=== PATIENT | male | born 1940 | race Caucasian/White ===

== ENCOUNTER 2017-11-27 12:14 | Observation (INO) | payer OTHER ==
--- NOTE | 2017-11-27 12:51 | RAD REPORT ---
EXAM DESCRIPTION: CT - Head Brain Wo Cont - 11/27/2017 12:44 pm CLINICAL HISTORY: Dizziness, lightheaded, altered mental status, possible head trauma COMPARISON: October 20 TECHNIQUE: Axial 5 mm thick images of the head were obtained without IV contrast. All CT scans are performed using dose optimization technique as appropriate and may include automated exposure control or mA/KV adjustment according to patient size. FINDINGS: No intracranial hemorrhage, mass, edema or shift of mid-line structures. No acute cortical based infarction. No cortical edema or sulcal effacement. The patient has moderate atrophy and chron ic ischemic change are noted similar to comparison. No abnormal extra-axial fluid collections. Ventri cular size remains in proportion to the amount of volume loss. Arterial and physiologic calcification s are present. Mastoid air cells and visualized portions of the paranasal sinuses are clear. No acute bony findings. IMPRESSION: Moderate atrophy and chronic ischemic change similar to comparison. No acute intracrania l finding.
[2017-11-27 13:16] LABS: Absolute Lymphocytes (CBC) 1.3 K/uL (0.7-4.9); Absolute Monocytes 0.6 K/uL (0.1-1.3); Absolute Neutrophil 6.7 K/uL (1.8-8.0); Hematocrit 41.7 % (39.6-49.0); Lymphocytes % 14.8 % (15.3-44.8); MCH 28.2 pg (27.0-35.0); MCV 84.3 fL (80-100); MPV 10.3 fL (7.6-11.3); Monocytes % 6.6 % (3.3-12.3); RBC Red Blood Cell Count 4.94 M/uL (4.33-5.43)
[2017-11-27 13:25] LABS: Bicarbonate 23 mEq/L (21-31); Glucose Level 392 mg/dL (65-120); Lipase 21 U/L (22-51); Potassium 3.5 mEq/L (3.6-5.0); Sodium Level 135 mEq/L (135-145)
[2017-11-27] MEDS ORDERED: NA CHLORIDE 0.9% 1,000 ML ONE (13:28)
[2017-11-27] MEDS ORDERED: TETANUS & DIPHTHERIA TOX,ADULT 0.5 ML VIAL ONE (13:29)
[2017-11-27 13:32] LABS: ALT/SGPT 13 IU/L (10-60); AST/SGOT 16 IU/L (10-42); Albumin 3.3 g/dL (3.2-5.5); Alkaline Phosphatase 63 IU/L (42-121); BUN Blood Urea Nitrogen 14 mg/dL (6-20); Bilirubin Direct 0.1 mg/dL (0-0.2); Bilirubin Total 0.7 mg/dL (0.3-1.2); Glomerular Filtration Rate > 90 mL/min (=/>90); Protein, Total 6.7 g/dL (6.0-8.3)
--- NOTE | 2017-11-27 15:35 | EDPHYS ---
Physician Documentation [facility] Name: Wolf Roberto Age: 77 yrs Sex: Male : 1940 Arrival Date: 11/27/2017 Time: 12:19 Bed 7 Private MD: ED Physician Griffin Mckeon HPI: 11/27 15:23 This 77 yrs old Male presents to ER via EMS with complaints of Diarrhea. gs 15:24 The patient has experienced syncope, became unresponsive. Onset: The symptoms/episode gs began/occurred acutely, just prior to arrival. Duration: This was a single episode. Context: occurred [facility]. Associated injury: Head/face: abrasion. Associated signs and symptoms: Pertinent positives: diarrhea for several days seen in ed worked up still feels weak today. Current symptoms: Currently, the patient is not experiencing any symptoms, the patient feels back to baseline. Historical: - Allergies: 12:28 PENICILLINS; iw - Home Meds: 12:29 aspirin 325 mg Oral tab 1 tab once daily [Active]; enalapril maleate 10 mg Oral tab 1 iw tab once daily [Active]; Fish Oil 1,000 mg Oral cap twice a day [Active]; gemfibrozil 600 mg Oral tab 1 tab 2 times per day [Active]; glyburide-metformin 5-500 mg Oral tab 2 tabs 2 times per day [Active]; imdur ER 60 mg daily [Active]; meclizine 25 mg Oral tab 1 tab TID prn [Active]; metoprolol tartrate 50 mg Oral tab once daily [Active]; multivitamin Oral cap 1 tab daily [Active]; Novolin 70/30 Innolet Sub-Q [Active]; pentoxifylline 400 mg Oral TbER 1 tab daily [Active]; Plavix 75 mg Oral tab 1 tab once daily [Active]; Vitamin C 500 mg Oral cpER daily [Active]; vitamin E 400 unit Oral cap daily [Active]; - PMHx: 12:28 Diabetes - NIDDM; PVD; TIA; iw - PSHx: 12:28 quadruple bypass; iw - Immunization history:: Adult Immunizations unknown. - Social history:: The patient lives at home, Smoking status: Patient/guardian denies using tobacco. ROS: 15:24 All other systems are negative. gs Exam: 15:24 Constitutional: This is a well developed, well nourished patient who is awake, alert, gs and in no acute distress. 15:24 Eyes: Pupils equal round and reactive to light, extra-ocular motions intact. Lids and lashes normal. Conjunctiva and sclera are non-icteric and not injected. Cornea within normal limits. Periorbital areas with no swelling, redness, or edema. ENT: Nares patent. No nasal discharge, no septal abnormalities noted. Tympanic membranes are normal and external auditory canals are clear. Oropharynx with no redness, swelling, or masses, exudates, or evidence of obstruction, uvula midline. Mucous membranes moist. Neck: Trachea midline, no thyromegaly or masses palpated, and no cervical lymphadenopathy. Supple, full range of motion without nuchal rigidity, or vertebral point tenderness. No Meningismus. Chest/axilla: Normal chest wall appearance and motion. Nontender with no deformity. No lesions are appreciated. Cardiovascular: Regular rate and rhythm with a normal S1 and S2. No gallops, murmurs, or rubs. Normal PMI, no JVD. No pulse deficits. Respiratory: Lungs have equal breath sounds bilaterally, clear to auscultation and percussion. No rales, rhonchi or wheezes noted. No increased work of breathing, no retractions or nasal flaring. Abdomen/GI: Soft, non-tender, with normal bowel sounds. No distension or tympany. No guarding or rebound. No evidence of tenderness throughout. Back: No spinal tenderness. No costovertebral tenderness. Full range of motion. Skin: Warm, dry with normal turgor. Normal color with no rashes, no lesions, and no evidence of cellulitis. 15:24 Head/face: Noted is abrasion(s), that are mild, of the top of head. 15:24 ECG was reviewed by the Attending Physician. 15:24 Musculoskeletal/extremity: Pulses: are normal with no appreciated deficits, Edema, 1+ to the left midcalf and right midcalf is noted, Sensation intact. decrease dorsiflex ankle and ehl says started over weekend. 15:24 Neuro: Orientation: is normal, Mentation: is normal, Cranial nerves: CN II- XII are normal as tested, Cerebellar function: normal finger to nose testing, Motor: moves all fours, Sensation: no obvious gross deficits. Vital Signs: 12:27 BP 139 / 80; Pulse 83; Resp 18; Pulse Ox 96% ; ae1 12:28 BP 139 / 80; Pulse 86; Resp 16 S; Temp 97.2; Pulse Ox 97% on R/A; Weight 107.5 kg; iw Height 6 ft. 1 in. (185.42 cm); Pain 4/10; 13:30 BP 152 / 77; Pulse 85; Resp 16; Pulse Ox 98% on R/A; jl7 14:13 BP 152 / 77; Pulse 85; Resp 16 S; Pulse Ox 96% on R/A; jl7 14:45 BP 150 / 92; Pulse 79; Resp 18 S; Pulse Ox 100% on R/A; jl7 15:30 BP 157 / 83; Pulse 79; Resp 18 S; Pulse Ox 100% on R/A; jl7 16:15 BP 142 / 76; Pulse 80; Resp 18 S; Pulse Ox 99% on R/A; jl7 12:28 Body Mass Index 31.27 (107.50 kg, 185.42 cm) iw MDM: 12:27 Patient medically screened. 15:24 Differential Diagnosis: cardiac arrhythmia, cerebrovascular accident, seizure, gs vasovagal episode. Data reviewed: vital signs, nurses notes. Response to treatment: the patient's symptoms have markedly improved after treatment, and as a result, I will admit patient. 11/27 12:29 Order name: Basic Metabolic Panel; Complete Time: 14:24 11/27 12:29 Order name: CBC with Diff; Complete Time: 13:17 11/27 12:29 Order name: Hepatic Function; Complete Time: 14:24 11/27 12:29 Order name: Lipase; Complete Time: 14:24 11/27 12:29 Order name: Urine Microscopic Only 11/27 12:29 Order name: CDIFF 11/27 12:29 Order name: EKG; Complete Time: 12:30 11/27 12:29 Order name: CT Head Brain wo Cont; Complete Time: 13:17 11/27 15:37 Order name: Urine Dipstick--Ancillary (enter results) 11/27 17:22 Order name: Glucose, Ancillary Testing [facility] 11/27 17:22 Order name: Glucose, Ancillary Testing [facility] 11/27 12:29 Order name: IV Saline Lock; Complete Time: 13:11 11/27 12:29 Order name: Labs collected and sent; Complete Time: 13:11 11/27 12:29 Order name: Urine Dipstick-Ancillary (obtain specimen); Complete Time: 15:48 11/27 16:16 Order name: CONS Physician Consult [facility] 11/27 16:16 Order name: Regular [facility] EC:24 Rate is 83 beats/min. Rhythm is regular. GA interval is normal. QRS interval is gs prolonged. QT interval is prolonged. Clinical impression: NSR w/ Non-specific ST/T Changes. Interpreted by me. Administered Medications: 13:14 Drug: NS 0.9% 1000 ml Route: IV; Rate: 1 bolus; Site: right forearm; jl7 14:15 Follow up: Response: No adverse reaction; IV Status: Completed infusion jl7 17:45 Follow up: IV Status: Completed infusion iw 14:00 Drug: Tetanus-Diphtheria Toxoid Adult 0.5 ml {Standards Engineer: [employer]. Exp: jl7 04/05/2020. Lot #: [id number]. } Route: IM; Site: left deltoid; 14:46 Follow up: Response: No adverse reaction jl7 17:28 Drug: HumuLIN R 2 units {Co-Signature: joana (Sherri Phillips RN).} Route: IVP; Site: right forearm; 17:45 Follow up: Response: No adverse reaction Point of Care Testing: Blood Glucose: 12:27 Blood Glucose: 336 mg/dL; ae1 17:27 Blood Glucose: 223 mg/dL; jl7 Ranges: Critical Glucose Levels:Adult <50 mg/dl or >400 mg/dl <40 mg/dl or >180 mg/dl Disposition: 11/27/17 15:35 Hospitalization ordered by Boris Alvarez for Observation. Preliminary diagnosis are Weakness, Syncope and collapse, Foot drop, right foot, Diarrhea, unspecified. - Bed requested for Telemetry/MedSurg (observation). - Status is Observation. iw - Condition is Stable. - Problem is new. - Symptoms have improved. UTI on Admission? No Signatures: Dispatcher [employer] [facility] Brigid Simpson RN RN iw Vandana Garcia RN RN jl7 Roseanna Hart RN RN df Starr, Gregory, MD MD gs Sherrihoang Phillips RN dm5
--- NOTE | 2017-11-27 15:35 | ER ---
Nurse's Notes [facility] Name: Wolf Roberto Age: 77 yrs Sex: Male : 1940 Arrival Date: 11/27/2017 Time: 12:19 Bed 7 Private MD: Diagnosis: Weakness;Syncope and collapse;Foot drop, right foot;Diarrhea, unspecified Presentation: 11/27 12:24 Presenting complaint: EMS states: has had diarrhea X 6 days, was seen in Er on Monday iw for same symptoms, yesterday was feeling better but today felt light headed, dizzy, fell from standing, has abrasion to top of head, also c/o mild abd discomfort 12/12, denies vomiting. Transition of care: patient was not received from another setting of care. Onset of symptoms was November 22, 2017. Care prior to arrival: Glucose check: 421. 12:24 Method Of Arrival: EMS: [facility] iw 12:24 Acuity: TIM 3 iw Historical: - Allergies: 12:28 PENICILLINS; iw - Home Meds: 12:29 aspirin 325 mg Oral tab 1 tab once daily [Active]; enalapril maleate 10 mg Oral tab 1 iw tab once daily [Active]; Fish Oil 1,000 mg Oral cap twice a day [Active]; gemfibrozil 600 mg Oral tab 1 tab 2 times per day [Active]; glyburide-metformin 5-500 mg Oral tab 2 tabs 2 times per day [Active]; imdur ER 60 mg daily [Active]; meclizine 25 mg Oral tab 1 tab TID prn [Active]; metoprolol tartrate 50 mg Oral tab once daily [Active]; multivitamin Oral cap 1 tab daily [Active]; Novolin 70/30 Innolet Sub-Q [Active]; pentoxifylline 400 mg Oral TbER 1 tab daily [Active]; Plavix 75 mg Oral tab 1 tab once daily [Active]; Vitamin C 500 mg Oral cpER daily [Active]; vitamin E 400 unit Oral cap daily [Active]; - PMHx: 12:28 Diabetes - NIDDM; PVD; TIA; iw - PSHx: 12:28 quadruple bypass; iw - Immunization history:: Adult Immunizations unknown. - Social history:: The patient lives at home, Smoking status: Patient/guardian denies using tobacco. Screenin:30 Abuse screen: Denies threats or abuse. Denies injuries from another. Nutritional jl7 screening: No deficits noted. Tuberculosis screening: No symptoms or risk factors identified. Fall Risk IV access (20 points). Total Ventura Fall Scale indicates No Risk (0-24 pts). Assessment: 12:30 General: Appears in no apparent distress. uncomfortable, Behavior is calm, cooperative, jl7 appropriate for age. Pain: Complains of pain in right lower quadrant and left lower quadrant Pain does not radiate. Pain currently is 4 out of 10 on a pain scale. Quality of pain is described as aching. Neuro: Level of Consciousness is awake, alert, obeys commands, Oriented to person, place, time, situation. Cardiovascular: Patient's skin is warm and dry. Respiratory: Airway is patent Respiratory effort is even, unlabored, Respiratory pattern is regular, symmetrical. GI: Abdomen is round non-distended, Bowel sounds present X 4 quads. Abd is soft Abdomen is tender to palpation in right lower quadrant and left lower quadrant. : No signs and/or symptoms were reported regarding the genitourinary system. EENT: No signs and/or symptoms were reported regarding the EENT system. Derm: Skin is pink, warm \T\ dry. Musculoskeletal: No signs and/or symptoms reported regarding the musculoskeletal system. 13:30 Reassessment: No changes from previously documented assessment. Patient and/or family jl7 updated on plan of care and expected duration. Pain level reassessed. Patient is alert, oriented x 3, equal unlabored respirations, skin warm/dry/pink. 14:30 Reassessment: Patient and/or family updated on plan of care and expected duration. Pain jl7 level reassessed. Patient is alert, oriented x 3, equal unlabored respirations, skin warm/dry/pink. 15:30 Reassessment: Patient and/or family updated on plan of care and expected duration. Pain jl7 level reassessed. Patient is alert, oriented x 3, equal unlabored respirations, skin warm/dry/pink. 16:16 Reassessment: Patient and/or family updated on plan of care and expected duration. Pain jl7 level reassessed. Patient is alert, oriented x 3, equal unlabored respirations, skin warm/dry/pink. Vital Signs: 12:27 BP 139 / 80; Pulse 83; Resp 18; Pulse Ox 96% ; ae1 12:28 BP 139 / 80; Pulse 86; Resp 16 S; Temp 97.2; Pulse Ox 97% on R/A; Weight 107.5 kg; iw Height 6 ft. 1 in. (185.42 cm); Pain 4/10; 13:30 BP 152 / 77; Pulse 85; Resp 16; Pulse Ox 98% on R/A; jl7 14:13 BP 152 / 77; Pulse 85; Resp 16 S; Pulse Ox 96% on R/A; jl7 14:45 BP 150 / 92; Pulse 79; Resp 18 S; Pulse Ox 100% on R/A; jl7 15:30 BP 157 / 83; Pulse 79; Resp 18 S; Pulse Ox 100% on R/A; jl7 16:15 BP 142 / 76; Pulse 80; Resp 18 S; Pulse Ox 99% on R/A; jl7 12:28 Body Mass Index 31.27 (107.50 kg, 185.42 cm) iw ED Course: 12:19 Patient arrived in ED. iw 12:20 Griffin Mckeon MD is Attending Physician. gs 12:27 Parviz Walsh, RN is Primary Nurse. ae1 12:27 Triage completed. iw 12:28 Arm band placed on. iw 12:30 Patient has correct armband on for positive identification. Placed in gown. Bed in low jl7 position. Call light in reach. Side rails up X2. front desk monitor on. Pulse ox on. NIBP on. Warm blanket given. 12:44 CT Head Brain wo Cont In Process Unspecified. EDMS 13:11 EKG done, by vehicle operator technician. reviewed by Griffin Mckeon MD. Initial lab(s) drawn, by ne, sent jb1 to lab. Inserted saline lock: 22 gauge in right forearm, using aseptic technique. Blood collected. 13:13 Primary Nurse role handed off by Parviz Walsh RN jl7 13:13 Vandana Garcia RN is Primary Nurse. jl7 15:34 Boris Alvarez MD is Hospitalizing Provider. gs 17:44 No provider procedures requiring assistance completed. Patient admitted, IV remains in iw place. Administered Medications: 13:14 Drug: NS 0.9% 1000 ml Route: IV; Rate: 1 bolus; Site: right forearm; jl7 14:15 Follow up: Response: No adverse reaction; IV Status: Completed infusion jl7 17:45 Follow up: IV Status: Completed infusion iw 14:00 Drug: Tetanus-Diphtheria Toxoid Adult 0.5 ml {Anthropological Linguist: [employer]. Exp: jl7 04/05/2020. Lot #: [id number]. } Route: IM; Site: left deltoid; 14:46 Follow up: Response: No adverse reaction jl7 17:28 Drug: HumuLIN R 2 units {Co-Signature: [email or web address] (Sherri Phillips RN).} Route: IVP; Site: iw right forearm; 17:45 Follow up: Response: No adverse reaction iw Point of Care Testing: Blood Glucose: 12:27 Blood Glucose: 336 mg/dL; ae1 17:27 Blood Glucose: 223 mg/dL; jl7 Ranges: Outcome: 15:35 Decision to Hospitalize by Provider. 17:44 Admitted to Med/surg accompanied by tech, via wheelchair, room 214, Report called to ronak Vargas 17:44 Condition: good 17:44 Instructed on the need for admit, Demonstrated understanding of instructions. 17:46 Patient left the ED. iw Signatures: Dispatcher [employer] Naeem Clinton jbBrigid Barba RN RN iw Parviz Walsh RN RN fred1 Vandaan Garcia RN RN jl7 Griffin Mckeon MD MD Sherri Phillips RN dm5
[2017-11-27 15:48] LABS: Urine Blood NEGATIVE (NEG); Urine Glucose 2+ (NEG); Urine Protein NEGATIVE (NEG)
[2017-11-27 16:08] LABS: Urine Bacteria NONE SEEN /HPF (NONE SEEN); Urine Culture Reflex Order NOT NEEDED; Urine RBC <5 /HPF (NONE SEEN)
[2017-11-27] MEDS ORDERED: ACETAMINOPHEN 500 MG TAB PO PRN (16:15)
--- NOTE | 2017-11-27 16:20 | EKG ---
Test Date: 2017-11-27 Test Time: 12:53:38 Store Lead: CATH MEASUREMENT RESULTS: Intervals: Rate: 83 WV: 186 QRSD: 144 QT: 446 QTc: 524 [place]: P: 66 WV: 186 QRS: 60 T: 52 INTERPRETIVE STATEMENTS: Normal sinus rhythm Right bundle branch block Anteroseptal infarct, age undetermined Abnormal ECG Compared to ECG 11/25/2017 13:09:50 No significant changes Electronically Signed On 11-27-17 16:19:34 CDT by Curtis Franz
[2017-11-27] MEDS ORDERED: INSULIN -REGULAR HUMAN 50 UNIT/0.5 ML ML ONE (17:37)
[2017-11-27 18:45] VITALS: BMI 29.5
[2017-11-27] MEDS: NA CHLORIDE 0.9% 1,000 ML IV SCH (20:09)
--- NOTE | 2017-11-27 20:19 | RAD REPORT ---
EXAM DESCRIPTION: MRI - Stroke Protocol - 11/27/2017 8:02 pm COMPARISON: None. TECHNIQUE: Axial, sagittal and coronal magnetic resonance images of the brain were obtained. Twenty cc MultiHance was administered. Magnetic resonance angiography of the head and neck was performed. So urce images were reviewed and reconstructed at 360 degrees rotation. FINDINGS: No abnormal enhancement within the brain is seen. No significant abnormal signal within t he brain is noted. The ventricles are normal caliber. An extra-axial fluid collection is not seen. Diffusion-weighted/ADC mapping does not reveal evidence of an acute infarction. A mucus retention cyst is present in the right maxillary sinus. Fluid within the sinuses/mastoids is not seen. An approximately 70-80 percent stenosis involves the left carotid bulb. The common, right internal an d external carotid arteries do not demonstrate a significant stenosis. The vertebral arteries are unr emarkable. The visualized right anterior cerebral, middle cerebral, posterior cerebral, basilar and distal inte rnal carotid arteries do not demonstrate a significant stenosis. An aneurysm is not seen. A 1 segment of the left anterior cerebral artery is hypoplastic IMPRESSION: Unremarkable MRI brain Approximately 70-80% stenosis left carotid bulb Unremarkable MRA brain
[2017-11-27] MEDS ORDERED: GLUCAGON 1 MG/VIAL IM PRN (21:36)
[2017-11-27] MEDS ORDERED: D50W 25 GM/50 ML SYRINGE IV PRN (21:36)
[2017-11-27] MEDS ORDERED: POTASSIUM CL SA 10 MEQ TAB PO ONE (22:00)
--- NOTE | 2017-11-27 23:02 | CON ---
Date of Consultation: 11/27/2017 Reason: Syncope. History Of Present Illness: A 77-year-old gentleman with hypertension, diabetes, hyperlipidemia. He was well until last when he started developing copious diarrhea, came to the emergency depa rtment on Monday, seen, treated, and released. CT abdomen and pelvis, low-density areas within the spleen, suspicious for splenic infarct. CBC has been normal. Glucose quite elevated and remains so today. The patient gives a history of since Monday having right foot weakness and then today nathalie g with the diarrhea several episodes of syncope, passed out, fell, hit his head, in addition an episo de last month where he became confused, drove his car around until it was empty. The patient has ess entially no recollection of that, came into the hospital then, sent to [place], that date is not avai lable, but he had a workup. He states none of his medications were changed. After the multiple epis odes of syncope today, EMS was summoned, and brought to the emergency department. Blood pressure has not been excessively low. He was admitted. Given the leg weakness and multiple episodes of syncope as well as the episode from last month, I was consulted. Past Medical History: As alluded to. Medications: Normally pentoxifylline, Zocor, Toprol, Glucophage, meclizine, isosorbide, insulin, gly buride, Lopid, Flonase, Vasotec, Plavix, and aspirin. Allergies: PENICILLIN, TETANUS. Social History: Does not smoke. Normally independent with activities of daily living. Family History: No family history of premature stroke. Review of Systems: General: Good health. Eyes: Negative. Ears, Nose, Throat: Negative. Cardiovascular: Hypertension. Pulmonary: Denies. GI: Diarrhea. : Negative. Musculoskeletal: Leg paresthesias, leg weakness. Neurologic: As noted. Psychiatric: Negative. Endocrine: Diabetes. Hematologic: Negative. Physical Examination: Vital Signs: Temperature 97.1, pulse 86, respiratory rate 16, blood pressure 177/94. General: He is a pleasant gentleman, lying in bed, in no distress. Awake, alert, oriented. HEENT: Pupils reactive. Ocular motion full. Scruggs full. Facial strength, sensation normal. Tong ue protrudes evenly. Soft palate elevates symmetrically bilaterally. Extremities: Examination of his extremities reveals right footdrop 3/5 with weakness and foot eversi on and slight weakness in inversion as well. Reflexes 1/4 symmetric. Left toe is downgoing. Right toe is silent. Cerebellar exam demonstrates no ataxia. Impression: Syncope, footdrop. Plan: Check an EEG for the syncope, although likely related to volume depletion. 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 Thank you for the consult. We will continue to follow with you. AMALIA/GINGER Voice ID: [id number] Report ID: [id number]
[2017-11-28] MEDS: ENALAPRIL 2.5 MG TAB PO SCH (05:28)
[2017-11-28] MEDS: METOPROLOL XL 50 MG TAB PO SCH (05:28)
[2017-11-28] MEDS: NA CHLORIDE 0.9% 1,000 ML IV SCH ×3 (05:30→23:43)
[2017-11-28 06:34] LABS: BUN Blood Urea Nitrogen 10 mg/dL (6-20); Bicarbonate 25 mEq/L (21-31); Glomerular Filtration Rate > 90 mL/min (=/>90); Glucose Level 242 mg/dL (65-120); HDL Cholesterol 28 mg/dL (27-67); LDL Cholesterol, Calculated 69 (<130); Potassium 3.4 mEq/L (3.6-5.0); Sodium Level 136 mEq/L (135-145); Thyroid Stimulating Hormone 3.07 uIU/mL (0.34-5.60)
[2017-11-28] MEDS: INSULIN -REGULAR HUMAN 50 UNIT/0.5 ML ML SQ SCH ×4 (07:30→21:00)
[2017-11-28] MEDS ORDERED: POTASSIUM CL SA 10 MEQ TAB PO ONE (08:00)
[2017-11-28] MEDS: glyBURIDE 2.5 MG TAB PO SCH ×2 (09:02→21:27)
[2017-11-28] MEDS: GEMFIBROZIL 600 MG TAB PO SCH ×2 (09:03→21:30)
[2017-11-28] MEDS: PENTOXIFYLLINE ER 400 MG TAB PO SCH (09:03)
[2017-11-28] MEDS: METFORMIN HCL 500 MG TAB PO SCH ×2 (09:03→17:06)
[2017-11-28] MEDS: ISOSORBIDE MONO SR 60 MG TAB PO SCH ×2 (09:03→21:27)
[2017-11-28] MEDS: ATORVASTATIN 40 MG TAB PO SCH (09:03)
[2017-11-28] MEDS: CLOPIDOGREL 75 MG TABLET PO SCH (09:03)
[2017-11-28] MEDS: MECLIZINE HCL 12.5 MG TAB PO SCH ×2 (09:03→21:28)
[2017-11-28] MEDS: ENOXAPARIN 30 MG/0.3 ML SQ SCH ×2 (09:04→21:27)
[2017-11-28] MEDS: FLUTICASONE 50MCG NASAL SPRAY NAS SCH (10:24)
[2017-11-28 12:51] LABS: A1c Component 1.37 mg/dL
[2017-11-28] MEDS: KCL 20 MEQ/100 mL IVPB 20 MEQ/100 ML BAG IV SCH ×2 (18:00→21:27)
[2017-11-28 21:55] VITALS: O2SAT 99
--- NOTE | 2017-11-28 23:30 | PN ---
Date of Progress Note: 11/28/2017 Time: 1900 hours. Reason: Footdrop and syncope. Interval History: The patient is stable. Brain MRI, no acute stroke, questionable borderline 70-80% left carotid stenosis. He is asymptomatic. I would recommend revascularization for that. EEG was normal. Footdrop slightly improved today. Laboratory Data: Sedimentation rate normal. Thyroid and B12 normal. Hemoglobin A1c 12. Physical Examination: He is awake, alert, oriented. Cranial nerves are unremarkable. 4- right foot dorsiflexion and jada ion weakness. Inversion is full strength today. Knee jerks are symmetric. Ankle jerks are absent. Fewer paresthesias over the right zavala. Impression: 1.Syncope, likely vasovagal with a component of diabetic autonomic neuropathy. 2.Footdrop, peroneal neuropathy. No evidence for new stroke. Plan: The patient is stable to be discharged home. From a nervous system standpoint, he should have an AFO. I directed the patient obtain that, given him a prescription, left in his chart. He needs to go to [facility] here in town, so he can get the AFO fitted to his size. Reviewed with the patient 's attending as well. Thank you for the consult. LAKISHA Voice ID: [id number] Report ID: [id number]
--- NOTE | 2017-11-29 05:19 | SS ---
Date of Discharge: 11/28/2017 Chief Complaint: Diarrhea and falling down. History Of Present Illness: This is a 77-year-old male patient with history of diabetes and multiple other comorbidities came into emergency room with above- mentioned problem. The patient started to have diarrhea in the last few days. Denies any travel. No recent use of any antibiotics. He had multiple episodes of diarrhea to the extent that sometime he would end up having loss of control because he could not make it to the bathroom in timely manner. 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 Again, as he was walking to go into the [facility], he fell down in the parking lot. He did not have any prior symptoms. No loss of consciousness. He did not trip over anything. He just does not know why he fell down. He was able to manage to get up by holding onto car and then as he went inside the [facility], he ran into the bathroom and he fell in the bathroom as well second time. Once again, there was no loss of consciousness. After this fall, he was sitting on the bathroom commode and someone came into the bathroom at that time and he requested to get some help. Ambulance was called and the patient was brought into the emergency room. After he arrived in the emergency room, he was evaluated and he also reported that he was not able to move his right foot as good as before and it was very obvious that the patient had a right footdrop and this is something new in last couple of days as he describes. He also feels like that he does not have any normal sensation in his right foot in last couple of days. He denies injury to right leg or right foot. After the patient was evaluated in the ER, he was admitted to the hospital. I went to check on him last night for this hospital admission, but he was in Radiology Department, getting MRI, so the patient was seen this morning. Allergies: TO PENICILLIN AND TETANUS. Medications: List reviewed. Review of Systems: DATA SCIENTIST: As mentioned above. GI: As mentioned above. All other systems reviewed and negative. Social History: Negative for smoking and alcohol use. Family History: Not pertinent. Past Surgical History: Coronary artery bypass surgery. Past Medical History: Significant for coronary artery disease, hypertension, hyperlipidemia, diabetes mellitus, peripheral vascular disease. Physical Examination: Vital Signs: When he came into emergency room, vital signs included temperature 97.2, pulse 83, respiratory rate 18, blood pressure 139/80, oxygen saturation 96%. General: Awake, alert, oriented, not in distress. HEENT: Head atraumatic, normocephalic. Conjunctivae nonerythematous. Sclerae white. Mouth, no thrush or edema noted. Ears/Nose, no mass, lesion, discharge noted. Neck: Supple. No JVD, lymph nodes, bruit, thyromegaly noted. Lungs: Bilateral good equal air entry. Clear to auscultation. No rhonchi. No rales. Heart: Normal heart sounds, no murmur or gallop. Abdomen: Soft, bowel sounds normal. No guarding, rigidity, tenderness, mass, hepatosplenomegaly, distention, or bruit noted. Extremities: No leg edema. No calf tenderness. Skin: No rash, ulcer, cellulitis. Lymphatics: No lymph node enlargement in neck, supraclavicular, infraclavicular region. Neuro: The patient has right footdrop, otherwise no other focal neurological deficit. Chest: Unremarkable. External Genitalia: Deferred. Rectal: Deferred. Imaging: The patient's CAT scan of the head done in the emergency room does not show any acute intracranial changes. 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 EKG; normal sinus rhythm, right bundle-branch block. Laboratory Data: White count 8.8, hemoglobin 13.9, platelets 196. Sedimentation rate 17. Sodium 135, potassium 3.5, chloride 104, bicarb 23, BUN 14, creatinine 0.77, glucose 392. Liver function tests unremarkable. Triglyceride 255, total cholesterol 148, LDL 69, HDL 28. Hemoglobin A1c 12. B12 315. TSH 3.07. Urinalysis negative. Stool culture and stool C. diff done through emergency room on 11/25/2017, when he came into ER with diarrhea was negative. Hospital Course: After the patient was evaluated in the ER, he was admitted to the hospital. Neurology consultation was obtained from Dr. Thompson. There was no evidence of stroke. 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 Thompson has suspected. He is going to arrange for AFO brace for the patient to use. I did talk to patient this morning, explained it to him that because he has impaired sensation in his right foot and right footdrop, I have advised him that it is not safe for him to drive and my instruction for him was not to drive any car or motor vehicle at this point. He seems to understand and accept this recommendation. His workup was done at [facility] about a month ago when he was admitted there and at that time, he did not have any evidence of any carotid artery stenosis and Dr. Thompson thinks that this MRI report probably is over estimating the problem and has not suggested any further intervention at this point. Dr. Thompson has released him to go home from his point of view and he will arrange for the patient to get this AFO brace and I will see him for followup on an outpatient basis. Discharge Medications And Instructions: 1. Continue all prior home medications. 2. Follow up at my office and with Dr. Thompson in 2 weeks. 3. Follow up with Dr. Scott in 1 to 2 weeks because diabetes is not under good control. 4. Do not drive car. 5. Use brace over leg as prescribed by Dr. Thompson. Final Diagnoses: 1. Volume depletion. 2. Diarrhea. 3. 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 4. Diabetes mellitus, type 2, uncontrolled. 5. Hypertension. 6. Mixed hyperlipidemia. 7. Coronary artery disease. ILEANA/MODL Voice ID: [id number] Report ID: [id number] ZOE
[2017-11-29] MEDS: METOPROLOL XL 50 MG TAB PO SCH (05:20)
[2017-11-29] MEDS: ENALAPRIL 2.5 MG TAB PO SCH (05:20)
[2017-11-29 07:02] LABS: BUN Blood Urea Nitrogen 7 mg/dL (6-20); Bicarbonate 26 mEq/L (21-31); Glomerular Filtration Rate > 90 mL/min (=/>90); Glucose Level 125 mg/dL (65-120); Potassium 3.8 mEq/L (3.6-5.0); Sodium Level 140 mEq/L (135-145)
[2017-11-29 07:08] LABS: Magnesium 1.4 mg/dL (1.8-2.5)
[2017-11-29] MEDS: INSULIN -REGULAR HUMAN 50 UNIT/0.5 ML ML SQ SCH (07:30)
[2017-11-29] MEDS ORDERED: Magnesium Sulfate 2gm IVPB 2 G/50 ML BAG IV ONE (07:34)
[2017-11-29] MEDS ORDERED: POTASSIUM CL SA 10 MEQ TAB PO ONE (07:36)
[2017-11-29] MEDS: FLUTICASONE 50MCG NASAL SPRAY NAS SCH (09:00)
[2017-11-29] MEDS: glyBURIDE 2.5 MG TAB PO SCH (09:52)
[2017-11-29] MEDS: ISOSORBIDE MONO SR 60 MG TAB PO SCH (09:52)
[2017-11-29] MEDS: ATORVASTATIN 40 MG TAB PO SCH (09:52)
[2017-11-29] MEDS: GEMFIBROZIL 600 MG TAB PO SCH (09:52)
[2017-11-29] MEDS: CLOPIDOGREL 75 MG TABLET PO SCH (09:52)
[2017-11-29] MEDS: PENTOXIFYLLINE ER 400 MG TAB PO SCH (09:52)
[2017-11-29] MEDS: ENOXAPARIN 30 MG/0.3 ML SQ SCH (09:52)
[2017-11-29] MEDS: MECLIZINE HCL 12.5 MG TAB PO SCH (09:52)
[2017-11-29] MEDS: METFORMIN HCL 500 MG TAB PO SCH (09:52)
[2017-11-29 09:57] VITALS: BP 136/69; TEMP 99
--- NOTE | 2017-11-29 10:14 | EEG ---
CHART: [id number] TEST ID#: [id number] DATE OF STUDY: 11/28/2017 THE EEG WAS RECORDED PORTABLE IN THE PATIENT'S ROOM ON A 17 CHANNEL MACHINE. ELECTRODES WERE APPLIED IN THE USUAL MANNER USING THE INTERNATIONAL 10-20 SYSTEM. THE WAKING BACKGROUND RHYTHM IN THIS RECORD CONSISTS OF FAIRLY WELL DEVELOPED AND FAIRLY WELL ORGANIZED WAVES OF UP TO 10 HZ., MAXIMAL IN THE POSTERIOR HEAD REGIONS WHICH ATTENUATE NORMALLY WITH EYE OPENING. IN DROWSINESS THE BACKGROUND DROPS TO 9 HZ. THERE ARE NO FOCAL OR LATERALIZING FEATURES. NO EPILEPTIFORM ACTIVITY APPEARS. SLEEP DID NOT OCCUR. HYPERVENTILATION WAS NOT PERFORMED. PHOTIC STIMULATION PRODUCED FAIR DRIVING BILATERALLY. IMPRESSION: NORMAL EEG FOR THE AGE OF THE PATIENT IN WAKE AND DROWSINESS.
--- NOTE | 2017-12-11 05:10 | DS ---
Date of Discharge: 11/29/2017 Disposition: Discharged to go home. Physical Examination: HEENT: Unremarkable. Lungs: Clear to auscultation. Heart: Sounds normal. Abdomen: Soft. Bowel sounds normal. No guarding, rigidity, tenderness, or distention. Extremities: No leg edema. Discharge Medications And Instructions: 1.Continue all prior home medications. 2.Follow up at my office in 2 weeks[address] Thompson in 2 weeks. 4.Follow up with your project controls specialist Dr. Scott in 1-2 weeks as your diabetes is not under good c ontrol. 5.Do not drive car. 6.Use brace over right leg as prescribed by Dr. Thompson. Discharge Diagnoses: 1.Volume depletion. 2.Diarrhea. 3.Right foot drop. 4.Diabetes mellitus, type 2, uncontrolled. 5.Hypomagnesemia. 6.Hypokalemia. 7.Coronary artery disease. 8.Hypertension. Hospital Course: This is a 77-year-old male patient, admitted to the hospital with diarrhea and fall ing down. Please see dictated H and P for more information. [facility], he was admitted to the hospital with volume depletion and diarrhea problem. He was seen in consultation by Dr. Thompson. The patient was also noted to have right foot drop. Dr. Thompson thought this was due to peroneal neuropathy and he has suggested for patient to use right leg AFO brace and he will arrange for that. The patient has some impaired sensation on the right foot right leg as wel l with this neuropathy and he was advised not to drive car because this is the leg that he will be us ing it to drive car to control break and gas pedal, so he understands the importance of it and he was instructed not to drive car until further instruction. CAT scan of the brain was negative for any a cute changes. MRI of the brain was also negative for any stroke. Carotid Doppler showed 70%-80% teena nosis of the left carotid bulb and unremarkable MRA of the brain. Hemoglobin A1c came back 12 indica ting poor control of diabetes and patient was made aware of this and was advised that he should follo w up with his project controls specialist Dr. Scott in [place], who manages his diabetes as soon as possible for further management of diabetes. ILEANA/MODL Voice ID: [id number] Report ID: [id number]
== END 2017-11-29 11:26 | disposition home or self-care (01) ==
LOC: ER 12:14 → ERHOLD 16:13 → 2ND 17:37
PROVIDERS: ADMIT Internal Medicine; ATTEND Internal Medicine
DX: E86.9 Volume depletion, unspecified (principal); R19.7 Diarrhea, unspecified; M21.371 Foot drop, right foot; E11.65 Type 2 diabetes mellitus with hyperglycemia; E83.42 Hypomagnesemia; E87.6 Hypokalemia; I25.10 Atherosclerotic heart disease of native coronary artery without angina pectoris; E78.2 Mixed hyperlipidemia; I10 Essential (primary) hypertension; Z88.0 Allergy status to penicillin; Z88.7 Allergy status to serum and vaccine; Z95.1 Presence of aortocoronary bypass graft
CPT/HCPCS: 36415 ×2; 70450; 70544; 70549; 70553; 80048 ×3; 80061; 80076; 82607; 82962 ×9; 83036; 83690; 83735; 84132; 84443; 85025; 85652; 87493; 90714; 93005; 95819; 96361; 96374; 97112; 97116 ×2; 97163; 97530; 99285; A9577; G0378 ×2; J1650 ×3; J3475; J7030 ×5; 81003; 81015

== ENCOUNTER 2017-12-17 09:19 | Inpatient (IN) | payer OTHER ==
[2017-12-17] MEDS ORDERED: NA CHLORIDE 0.9% 500 ML ONE (10:02)
--- NOTE | 2017-12-17 10:32 | RAD REPORT ---
EXAM DESCRIPTION: RAD - Chest Single View - 12/17/2017 10:16 am CLINICAL HISTORY: Weakness, shortness of breath COMPARISON: November 25 TECHNIQUE: AP portable chest image was obtained 1005 hours . FINDINGS: Inspiratory effort is shallow. No consolidation or mass lesion. Sternotomy wires are in pl laura. No vascular engorgement or cardiomegaly. Heart size is stable. Patchy interstitial and alveolar opacities are present in the mid and lower right lung field new from the prior study. This is greater than expected for simple shallow inspiration artifact. Left hemidiaphragm elevation again noted. Heart and vasculature are normal. No measurable pleural eff usion and no pneumothorax. No gross bony abnormality seen. No acute aortic findings suspected. IMPRESSION: Suspected mild right lower lung field pneumonia.
--- NOTE | 2017-12-17 10:44 | RAD REPORT ---
EXAM DESCRIPTION: CT - Head Brain Wo Cont - 12/17/2017 10:26 am CLINICAL HISTORY: Weakness, vomiting, alter its mental status COMPARISON: November 27 TECHNIQUE: Axial 5 mm thick images of the head were obtained without IV contrast. All CT scans are performed using dose optimization technique as appropriate and may include automated exposure control or mA/KV adjustment according to patient size. FINDINGS: No intracranial hemorrhage, mass, edema or shift of mid-line structures. No acute cortical based infarction. Atrophy and chronic ischemic changes are present similar to the comparison. No abn ormal extra-axial fluid collections. Ventricles are in proportion to the advanced volume loss. Arteri al and physiologic calcifications are present. Mastoid air cells and visualized portions of the paranasal sinuses are clear. No acute bony findings. IMPRESSION: Prominent atrophy and chronic ischemic change similar to prior imaging. No acute intracr anial finding.
[2017-12-17 10:59] LABS: Absolute Monocytes 1.2 K/uL (0.1-1.3); Absolute Neutrophil 12.2 K/uL (1.8-8.0); Basophils % 0.5 % (0-1.3); Eosinophils % 0.1 % (0-4.4); Lymphocytes % 6.9 % (15.3-44.8); MCH 27.9 pg (27.0-35.0); MCV 85.5 fL (80-100); MPV 10.2 fL (7.6-11.3); RBC Red Blood Cell Count 5.39 M/uL (4.33-5.43)
[2017-12-17 11:03] LABS: Protime INR 1.19
[2017-12-17 11:17] LABS: Potassium 4.3 mEq/L (3.6-5.0)
[2017-12-17 11:23] LABS: Albumin 3.7 g/dL (3.2-5.5); Bilirubin Direct 0.2 mg/dL (0-0.2); Bilirubin Total 1.2 mg/dL (0.3-1.2); Magnesium 1.9 mg/dL (1.8-2.5); Protein, Total 8.9 g/dL (6.0-8.3)
[2017-12-17 11:28] LABS: CKMB Creatine Kinase MB 1.4 ng/ml (0.3-4.0)
--- NOTE | 2017-12-17 11:52 | ER ---
Nurse's Notes [facility] Name: Wolf Roberto Age: 77 yrs Sex: Male : 1940 Arrival Date: 12/17/2017 Time: 09:29 Bed 2 Private MD: Diagnosis: Pneumonia, unspecified organism;Altered mental status, unspecified Presentation: 12/17 09:35 Presenting complaint: EMS states: [facility] states patient c/o of generalized ae1 weakness and vomitingx2. Transition of care: patient was not received from another setting of care. Onset of symptoms was December 14, 2017 at 08:00. Care prior to arrival: V/S WNL. 09:35 Method Of Arrival: EMS: [facility] ae1 09:35 Acuity: TIM 3 ae1 Triage Assessment: 09:37 General: Appears in no apparent distress. comfortable, Behavior is calm, cooperative, ae1 quiet. Pain: Denies pain. EENT: wears glasses. Neuro: Level of Consciousness is awake, alert, obeys commands, Oriented to person, place, time, situation. Cardiovascular: Heart tones S1 S2 present Patient's skin is warm and dry. GI: Reports vomiting. 09:37 Respiratory: Airway is patent Respiratory effort is even, unlabored, Respiratory ae1 pattern is regular, symmetrical, Breath sounds are diminished bilaterally. 10:51 : No deficits noted. Derm: Skin is pale. Musculoskeletal: Reports Generalized ae1 weakness. Historical: - Allergies: 09:35 PENICILLINS; ae1 - Home Meds: 09:35 aspirin 325 mg Oral tab 1 tab once daily [Active]; enalapril maleate 10 mg Oral tab 1 ae1 tab once daily [Active]; Fish Oil 1,000 mg Oral cap twice a day [Active]; gemfibrozil 600 mg Oral tab 1 tab 2 times per day [Active]; glyburide-metformin 5-500 mg Oral tab 2 tabs 2 times per day [Active]; imdur ER 60 mg daily [Active]; meclizine 25 mg Oral tab 1 tab TID prn [Active]; metoprolol tartrate 50 mg Oral tab once daily [Active]; multivitamin Oral cap 1 tab daily [Active]; Novolin 70/30 [place] Sub-Q [Active]; pentoxifylline 400 mg Oral TbER 1 tab daily [Active]; Plavix 75 mg Oral tab 1 tab once daily [Active]; Vitamin C 500 mg Oral cpER daily [Active]; vitamin E 400 unit Oral cap daily [Active]; - PMHx: 09:35 Diabetes - NIDDM; PVD; TIA; ae1 - PSHx: 09:35 double bypass sx; ae1 - Immunization history:: Adult Immunizations up to date, Pneumococcal vaccine is up to date, Flu vaccine is up to date. - Social history:: Smoking status: Patient/guardian denies using tobacco. Screenin:13 Abuse screen: Denies threats or abuse. Nutritional screening: No deficits noted. ae1 Tuberculosis screening: No symptoms or risk factors identified. Fall Risk Fall in past 12 months (25 points). No secondary diagnosis (0 pts). IV access (20 points). Ambulatory Aid- Crutches/Cane/Walker (15 pts). Gait- Weak (10 pts.). Assessment: 10:52 Reassessment: Patient appears in no apparent distress at this time. Patient and/or ae1 family updated on plan of care and expected duration. Pain level reassessed. GI: No signs and/or symptoms were reported involving the gastrointestinal system. at this time. 13:18 Reassessment: Ok per provider to obtain one set of blood cultures for the time being. ae1 Will continue to monitor. 13:43 Reassessment: meal tray delivered. ae1 13:52 Reassessment: Report given to brett Marcum. ae1 Vital Signs: 09:30 BP 139 / 82; Pulse 107; Resp 26; Temp 97.6(O); Pulse Ox 95% on R/A; Weight 100.7 kg ae1 (R); Pain 0/10; 10:51 BP 145 / 90; Pulse 98; Resp 25; Pulse Ox 96% on R/A; ae1 ED Course: 09:29 Patient arrived in ED. ae1 09:33 Fred Wheeler MD is Attending Physician. kdr 09:37 Triage completed. ae1 09:37 Arm band placed on left wrist. ae1 09:37 Placed in gown. Bed in low position. Call light in reach. Side rails up X2. Cardiac ae1 monitor on. Pulse ox on. NIBP on. Warm blanket given. 09:53 Nico, Parviz, RN is Primary Nurse. ae1 10:13 X-ray completed. Portable x-ray completed in exam room. ap2 10:14 XRAY Chest (1 view) In Process Unspecified. EDMS 10:25 CT Head Brain wo Cont In Process Unspecified. EDMS 10:52 Inserted saline lock: 24 gauge in left hand, using aseptic technique. Missed ae1 attempt(s): 22 gauge in left antecubital area. 11:51 Nik Alvarez MD is Hospitalizing Provider. kdr 13:55 No provider procedures requiring assistance completed. IV discontinued, intact, ae1 bleeding controlled, No redness/swelling at site. Pressure dressing applied. Administered Medications: 10:50 Drug: NS 0.9% 500 ml Route: IV; Rate: bolus; Site: left hand; ae1 11:16 Follow up: IV Status: Completed infusion ae1 13:17 Drug: LevaQUIN 750 mg Route: PO; ae1 Point of Care Testing: Blood Glucose: 09:30 Blood Glucose: 307 mg/dL; ae1 Ranges: Outcome: 11:51 Decision to Hospitalize by Provider. kdr 13:55 Admitted to Tele accompanied by tech, via stretcher, room 421, with chart, Report ae1 called to Trixie, receiving nurse. 13:55 Condition: stable 13:55 Instructed on the need for admit, Demonstrated understanding of instructions. 14:07 Patient left the ED. ae1 Signatures: Dispatcher [employer] Fred Quick MD MD kdr Parviz Walsh, RN RN ae1 Lilli Tovar ap2 Corrections: (The following items were deleted from the chart) 13:19 09:37 Respiratory: Airway is patent Respiratory effort is even, unlabored, Respiratory ae1 pattern is regular, symmetrical, ae1
--- NOTE | 2017-12-17 11:52 | EDPHYS ---
Physician Documentation [facility] Name: Wolf Roberto Age: 77 yrs Sex: Male : 1940 Arrival Date: 12/17/2017 Time: 09:29 Bed 2 Private MD: ED Physician Fred Wheeler HPI: 12/17 16:12 This 77 yrs old Male presents to ER via EMS with complaints of General kdr Weakness, Vomiting. 16:13 The patient states that he laid down about three days ago and does not remember kdr anything until today. This happened to him about two years ago for a day. He has no other c/o and does not know why this may have happened. He has no c/o at this time other than generalized weakness.. Onset: The symptoms/episode began/occurred gradually, 3 day(s) ago. Severity of symptoms: At their worst the symptoms were mild moderate just prior to arrival, in the emergency department the symptoms have improved markedly. The patient has experienced a previous episode, approximately 2 years ago. The patient has not recently seen a physician. Historical: - Allergies: 09:35 PENICILLINS; ae1 - Home Meds: :35 aspirin 325 mg Oral tab 1 tab once daily [Active]; enalapril maleate 10 mg Oral tab 1 ae1 tab once daily [Active]; Fish Oil 1,000 mg Oral cap twice a day [Active]; gemfibrozil 600 mg Oral tab 1 tab 2 times per day [Active]; glyburide-metformin 5-500 mg Oral tab 2 tabs 2 times per day [Active]; imdur ER 60 mg daily [Active]; meclizine 25 mg Oral tab 1 tab TID prn [Active]; metoprolol tartrate 50 mg Oral tab once daily [Active]; multivitamin Oral cap 1 tab daily [Active]; Novolin 70/30 [place] Sub-Q [Active]; pentoxifylline 400 mg Oral TbER 1 tab daily [Active]; Plavix 75 mg Oral tab 1 tab once daily [Active]; Vitamin C 500 mg Oral cpER daily [Active]; vitamin E 400 unit Oral cap daily [Active]; - PMHx: 09:35 Diabetes - NIDDM; PVD; TIA; ae1 - PSHx: :35 double bypass sx; ae1 - Immunization history:: Adult Immunizations up to date, Pneumococcal vaccine is up to date, Flu vaccine is up to date. - Social history:: Smoking status: Patient/guardian denies using tobacco. ROS: 16:13 Constitutional: Negative for fever, chills, and weight loss, Eyes: Negative for injury, kdr pain, redness, and discharge, ENT: Negative for injury, pain, and discharge, Neck: Negative for injury, pain, and swelling, Cardiovascular: Negative for chest pain, palpitations, and edema, Respiratory: Negative for shortness of breath, cough, wheezing, and pleuritic chest pain, Abdomen/GI: Negative for abdominal pain, nausea, vomiting, diarrhea, and constipation, Back: Negative for injury and pain, : Negative for injury, bleeding, discharge, and swelling, MS/Extremity: Negative for injury and deformity, Skin: Negative for injury, rash, and discoloration, Psych: Negative for depression, anxiety, suicide ideation, homicidal ideation, and hallucinations, Allergy/Immunology: Negative for hives, rash, and allergies, Endocrine: Negative for neck swelling, polydipsia, polyuria, polyphagia, and marked weight changes, Hematologic/Lymphatic: Negative for swollen nodes, abnormal bleeding, and unusual bruising. 16:13 Neuro: Positive for altered mental status, weakness, Negative for dizziness, gait disturbance, headache, hearing loss, seizure activity, speech changes, syncope, tinnitus, tremor, visual changes. Exam: 16:13 Constitutional: This is a well developed, well nourished patient who is awake, alert, kdr and in no acute distress. Head/Face: Normocephalic, atraumatic. Eyes: Pupils equal round and reactive to light, extra-ocular motions intact. Lids and lashes normal. Conjunctiva and sclera are non-icteric and not injected. Cornea within normal limits. Periorbital areas with no swelling, redness, or edema. Neck: Trachea midline, no thyromegaly or masses palpated, and no cervical lymphadenopathy. Supple, full range of motion without nuchal rigidity, or vertebral point tenderness. No Meningismus. Chest/axilla: Normal chest wall appearance and motion. Nontender with no deformity. No lesions are appreciated. Cardiovascular: Regular rate and rhythm with a normal S1 and S2. No gallops, murmurs, or rubs. Normal PMI, no JVD. No pulse deficits. Respiratory: Lungs have equal breath sounds bilaterally, clear to auscultation and percussion. No rales, rhonchi or wheezes noted. No increased work of breathing, no retractions or nasal flaring. Abdomen/GI: Soft, non-tender, with normal bowel sounds. No distension or tympany. No guarding or rebound. No evidence of tenderness throughout. Back: No spinal tenderness. No costovertebral tenderness. Full range of motion. Skin: Warm, dry with normal turgor. Normal color with no rashes, no lesions, and no evidence of cellulitis. MS/ Extremity: Pulses equal, no cyanosis. Neurovascular intact. Full, normal range of motion. Neuro: Awake and alert, GCS 15, oriented to person, place, time, and situation. Cranial nerves II-XII grossly intact. Motor strength 5/5 in all extremities. Sensory grossly intact. Cerebellar exam normal. Normal gait. Psych: Awake, alert, with orientation to person, place and time. Behavior, mood, and affect are within normal limits. 16:13 ENT: Mucous membranes are dry. Vital Signs: 09:30 BP 139 / 82; Pulse 107; Resp 26; Temp 97.6(O); Pulse Ox 95% on R/A; Weight 100.7 kg ae1 (R); Pain 0/10; 10:51 BP 145 / 90; Pulse 98; Resp 25; Pulse Ox 96% on R/A; ae1 MDM: 11:51 Patient medically screened. kdr 13:31 Physician consultation: Angelo Gilliland MD was called at 13:31, was contacted at 13:31, kdr regarding admission, to the telemetry unit. to the medical/surgical unit. patient's condition. Admission orders: after a detailed discussion of the patient's condition and case, the admit orders are written by me. 16:13 Data reviewed: vital signs, nurses notes, lab test result(s), EKG, radiologic studies. kdr Counseling: I had a detailed discussion with the patient and/or guardian regarding: the historical points, exam findings, and any diagnostic results supporting the discharge/admit diagnosis, lab results, radiology results, the need for further work-up and treatment in the hospital. 12/17 09:49 Order name: CPK; Complete Time: :49 kdr 12/17 09:49 Order name: Basic Metabolic Panel; Complete Time: 11:49 kdr 12/17 09:49 Order name: BNP; Complete Time: 11:49 kdr 12/17 09:49 Order name: CBC with Diff; Complete Time: 11:49 kdr 12/17 09:49 Order name: Ckmb; Complete Time: 11:49 kdr 12/17 09:49 Order name: LFT's; Complete Time: 11:49 kdr 12/17 09:49 Order name: Magnesium; Complete Time: 11:49 kdr 12/17 09:49 Order name: PT-INR; Complete Time: 11:49 kdr 12/17 09:49 Order name: Ptt, Activated; Complete Time: 11:49 kdr 12/17 09:49 Order name: Troponin (emerg Dept Use Only); Complete Time: 11:49 kdr 12/17 09:49 Order name: XRAY Chest (1 view); Complete Time: 11:49 kdr 12/17 10:02 Order name: CT Head Brain wo Cont; Complete Time: 11:49 kdr 12/17 11:50 Order name: Blood Culture Adult (2) kdr 12/17 09:49 Order name: EKG; Complete Time: 09:49 kdr 12/17 09:49 Order name: Cardiac monitoring; Complete Time: 10:50 kdr 12/17 09:49 Order name: EKG - Nurse/Tech; Complete Time: 11:02 kdr 12/17 09:49 Order name: IV Saline Lock; Complete Time: 10:50 kdr 12/17 09:49 Order name: Labs collected and sent; Complete Time: 10:50 kdr 12/17 09:49 Order name: O2 Per Protocol; Complete Time: 10:51 kdr 12/17 09:49 Order name: O2 Sat Monitoring; Complete Time: 10:51 kdr 12/17 09:49 Order name: Urine Dipstick-Ancillary (obtain specimen) kdr Administered Medications: 10:50 Drug: NS 0.9% 500 ml Route: IV; Rate: bolus; Site: left hand; ae1 11:16 Follow up: IV Status: Completed infusion ae1 13:17 Drug: LevaQUIN 750 mg Route: PO; ae1 Point of Care Testing: Blood Glucose: 09:30 Blood Glucose: 307 mg/dL; ae1 Ranges: Critical Glucose Levels:Adult <50 mg/dl or >400 mg/dl <40 mg/dl or >180 mg/dl Disposition: 12/17/17 11:51 Hospitalization ordered by Nik Alvarez for Inpatient Admission. Preliminary diagnosis are Pneumonia, unspecified organism, Altered mental status, unspecified. - Bed requested for Telemetry/MedSurg (Inpatient). - Status is Inpatient Admission. ae1 - Condition is Fair. - Problem is new. - Symptoms have improved. UTI on Admission? No Signatures: Dispatcher [employer] EDTrini Chow RN RN dw Fred Wheeler MD MD kdr Elliott, Andrea, RN RN ae1
[2017-12-17] MEDS ORDERED: D5 0.45 NS 1,000 ML IV SCH (13:00)
[2017-12-17] MEDS ORDERED: ACETAMINOPHEN 500 MG TAB PO PRN (13:00)
[2017-12-17] MEDS: Levofloxacin500mg IV 500 MG/100 ML BAG IV SCH (13:00)
[2017-12-17] MEDS ORDERED: METOCLOPRAMIDE 10 MG/2mL INJ IV PRN (13:00)
[2017-12-17] MEDS ORDERED: levoFLOXacin 750 MG TAB ONE (13:13)
[2017-12-17] MEDS ORDERED: GLUCAGON 1 MG/VIAL IM PRN (17:34)
[2017-12-17] MEDS ORDERED: D50W 25 GM/50 ML SYRINGE IV PRN (17:34)
[2017-12-17] MEDS: INSULIN -REGULAR HUMAN 50 UNIT/0.5 ML ML SQ SCH ×2 (18:15→21:12)
--- NOTE | 2017-12-17 22:31 | EKG ---
Test Date: 2017-12-17 Test Time: 10:59:04 Medical Technician: VALERIA MEASUREMENT RESULTS: Intervals: Rate: 98 MA: 162 QRSD: 126 QT: 412 QTc: 525 [place]: P: 63 MA: 162 QRS: 40 T: 67 INTERPRETIVE STATEMENTS: Normal sinus rhythm Right bundle branch block Anteroseptal infarct, age undetermined T wave abnormality, consider lateral ischemia Abnormal ECG Compared to ECG 11/27/2017 12:53:38 no significant change from previous ECG Electronically Signed On 12-17-17 22:30:21 CDT by Curtis Franz
[2017-12-18] MEDS: HYDROCODONE/CHLORPHEN 5 ML/OSYR PO PRN (00:44)
[2017-12-18 01:35] LABS: Absolute Lymphocytes (CBC) 1.6 K/uL (0.7-4.9); Absolute Monocytes 1.3 K/uL (0.1-1.3); Absolute Neutrophil 10.1 K/uL (1.8-8.0); Basophils % 0.6 % (0-1.3); Eosinophils % 1.2 % (0-4.4); Hematocrit 41.9 % (39.6-49.0); Lymphocytes % 11.9 % (15.3-44.8); MCH 27.6 pg (27.0-35.0); MPV 9.8 fL (7.6-11.3); Monocytes % 9.5 % (3.3-12.3); RBC Red Blood Cell Count 4.99 M/uL (4.33-5.43)
[2017-12-18 01:54] LABS: Bicarbonate 24 mEq/L (21-31); Glucose Level 284 mg/dL (65-120); Potassium 3.2 mEq/L (3.6-5.0); Sodium Level 132 mEq/L (135-145)
[2017-12-18 01:57] LABS: ALT/SGPT 8 IU/L (10-60); AST/SGOT 11 IU/L (10-42); Alkaline Phosphatase 78 IU/L (42-121); BUN Blood Urea Nitrogen 17 mg/dL (6-20); Bilirubin Total 0.7 mg/dL (0.3-1.2); Protein, Total 7.5 g/dL (6.0-8.3)
[2017-12-18 04:53] LABS: Absolute Lymphocytes (CBC) 1.6 K/uL (0.7-4.9); Absolute Monocytes 1.1 K/uL (0.1-1.3); Absolute Neutrophil 9.4 K/uL (1.8-8.0); Basophils % 0.7 % (0-1.3); Eosinophils % 1.4 % (0-4.4); Hematocrit 40.4 % (39.6-49.0); Lymphocytes % 12.9 % (15.3-44.8); MCV 83.5 fL (80-100); MPV 9.9 fL (7.6-11.3); Monocytes % 9.2 % (3.3-12.3); RBC Red Blood Cell Count 4.85 M/uL (4.33-5.43)
[2017-12-18 05:39] LABS: BUN Blood Urea Nitrogen 17 mg/dL (6-20); Bicarbonate 24 mEq/L (21-31); Glucose Level 283 mg/dL (65-120); Potassium 3.5 mEq/L (3.6-5.0); Sodium Level 133 mEq/L (135-145)
[2017-12-18 07:07] LABS: Urine Appearance CLEAR; Urine Blood NEGATIVE (NEG); Urine Color YELLOW; Urine Glucose 3+ (NEG); Urine Microscopic Reflex ORDER UMIC; Urine Protein TRACE (NEG); Urine Urobilinogen 0.2 mg/dL (0.2-1.0)
[2017-12-18 07:11] LABS: Urine Bilirubin NEGATIVE (NEG)
[2017-12-18 07:47] LABS: Urine Bacteria <20 /HPF (NONE SEEN); Urine Culture Reflex Order NOT NEEDED; Urine RBC <5 /HPF (NONE SEEN)
[2017-12-18] MEDS: CEFTRIAXONE/SWI 1gm 1 GM/10 ML SYR IV SCH ×2 (08:38→21:07)
[2017-12-18] MEDS: ISOSORBIDE MONO SR 60 MG TAB PO SCH (08:39)
[2017-12-18] MEDS: ENOXAPARIN 40 MG/0.4 ML SQ SCH (08:39)
[2017-12-18] MEDS: METOPROLOL XL 50 MG TAB PO SCH (08:39)
[2017-12-18] MEDS: PENTOXIFYLLINE ER 400 MG TAB PO SCH ×2 (08:39→21:07)
[2017-12-18] MEDS: CLOPIDOGREL 75 MG TABLET PO SCH (08:40)
[2017-12-18] MEDS: INSULIN -REGULAR HUMAN 50 UNIT/0.5 ML ML SQ SCH ×4 (08:40→21:08)
[2017-12-18] MEDS: ASPIRIN EC 81 MG TAB PO SCH (08:40)
[2017-12-18] MEDS: ENALAPRIL 10 MG TAB PO SCH ×2 (08:40→21:07)
[2017-12-18] MEDS: Levofloxacin500mg IV 500 MG/100 ML BAG IV SCH (12:01)
[2017-12-18] MEDS ORDERED: POTASSIUM CL SA 10 MEQ TAB PO ONE (20:56)
[2017-12-18] MEDS: ATORVASTATIN 40 MG TAB PO SCH (21:07)
--- NOTE | 2017-12-18 22:52 | CON ---
Reason: Footdrop. History: This is a gentleman I had seen quite recently with footdrop likely from his diabetes, which could be better controlled. He was advised to get an AFO but he became slightly sidetracked with so me underlying vascular problems that he had. He had a 70-80% left carotid stenosis from which he was asymptomatic. 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 Workup revealed pneumonia. His CT scan was u nchanged. The right footdrop is unchanged. Receiving antibiotics for the pneumonia. Review reveals that the patient just had not gotten around to getting an AFO. He is not a distinctly crisp histori an. Consultation was requested. Past Medical History: Diabetes, coronary disease, hyperlipidemia. Medications: Routine home medications are Enalapril, aspirin, isosorbide, metoprolol, simvastatin, G lucophage, insulin, glyburide, Plavix. Allergies: PENICILLIN AND TETANUS. Social History: Does not drink alcohol. Does not smoke. Family History: Noncontributory to present problem. Review of Systems: General: Chronically ill. Eyes: Denies. Ears, Nose, Throat: No dysarthria. No dysphagia. Cardiovascular: Hypertension, asymptomatic carotid disease. Neurologic: As noted. Psychiatric: Negative. Endocrine: Diabetes. Hematologic: Negative. Physical Examination: VITAL SIGNS: Temperature 97.2, pulse 96, respirations 18, blood pressure 132/64. General: He is an elderly gentleman sitting in bed, awake, alert, oriented, lucid. Heart: Sinus rhythm. No carotid bruits. Lungs: Clear for inspiration. Shallow. Abdomen: Soft. Bowel sounds present. HEENT: Pupils reactive. Ocular motion full. Scruggs full. Facial strength and sensation normal. T ongue protrudes evenly. Soft palate elevates symmetrically bilaterally. Extremities: Examination of his extremities reveals 3+ weakness, right foot dorsiflexion and eversio n, plantarflexion full strength. Sensation decreased distally in the superimposed decrease in sensat ion on the right anterior leg and distribution of the peroneal nerves cells, negative at the posterom edial nerve proper. Reflexes are absent. Toes are downgoing. Gait; high steppage on the right. Impression: Footdrop, peroneal neuropathy. Plan: We will try and get the nursing staff to coordinate with PT to see if we can actually get him an AFO while he is here in the hospital. If they do not keep that in stock, then we will need to get that as an outpatient at [facility]. The patient has fairly standard size, although he will b e at risk for tissue breakdown if he does not check the AFO and keep it clean on daily basis. Thank you for the consult. We will continue to follow with you. LAKISHA Voice ID: [id number] Report ID: [id number]
[2017-12-19] MEDS: ENOXAPARIN 40 MG/0.4 ML SQ SCH (08:15)
[2017-12-19] MEDS: ISOSORBIDE MONO SR 60 MG TAB PO SCH (08:15)
--- NOTE | 2017-12-19 08:15 | HP ---
Date of Admission: 12/18/2017 Chief Complaint: Pneumonia. History Of Present Illness: A 77-year-old male patient who was recently in the hospital during later part of last month with diarrhea and syncope type of problem. He was also diagnosed as having right footdrop, and he was seen by neurologist. During that hospital admission, he was advised to get a b race for his right foot for the footdrop as suggested by neurologist Dr. Thompson and was advised to fol low up with him in my office, and apparently, the patient has not done any one of this including brac e, he has not gone to get the brace either. He was advised not to drive a car because of his tinglin g, numbness of the right foot, and right footdrop and he has at least followed that instruction and h e has not been driving car. The patient says that he did not feel good and was feeling tire d and that is the last thing he remembers. Next thing he remembers is his friend next to his bed wak ing him up, and when he woke up, he realized after talking to his friend that it was Monday, so the patient says that he went to sleep some time on and woke up on Monday, in between what self ppened he does not have any recollection at all. He lives at home by himself. EMS was called after this. He was brought into the emergency room. After he was evaluated in the ER, he was admitted to the hospital with pneumonia problem. When I saw him today, he was sitting in chair. His mental stat us was normal like his normal self, answering all the questions appropriately. Allergies: PENICILLIN AND TETANUS. Review of Systems: Respiratory: As mentioned above. 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 All other systems reviewed and negative. Medications: According to my office list, he is on aspirin 81 mg daily, clopidogrel 75 mg p.o. daily , enalapril 10 mg twice a day, gemfibrozil 600 mg twice a day, isosorbide mononitrate 60 mg p.o. jonas y, metoprolol succinate 50 mg p.o. daily, pentoxifylline 400 mg p.o. daily, simvastatin 80 mg p.o. da jose, and NovoLog mix 70/30 insulin, he takes 40 units in the morning and 35 units in the evening time . Social History: Negative for smoking and alcohol use. Family History: Not pertinent. Past Surgical History: Coronary artery bypass surgery. Past Medical History: Significant for coronary artery disease, hypertension, mixed hyperlipidemia, d iabetes mellitus, peripheral vascular disease, right foot drop, diverticulosis, and hypothyroidism. Physical Examination: Vital Signs: When he came in, temperature 97.6, pulse 107, respiratory rate 26, blood pressure 139/8 2, oxygen saturation 95%, height 6 feet 1 inch, weight 222 pounds. General: Awake, alert, oriented, not in distress. HEENT: Head atraumatic, normocephalic. Conjunctivae nonerythematous. Sclerae white. Mouth, no thr ush or edema noted. Ears/Nose, no mass, lesion, discharge noted. Neck: Supple. No JVD, lymph nodes, bruit, thyromegaly noted. Lungs: Bilateral good equal air entry, presence of rales extending throughout the right lung field, not on the left side, not using accessory muscles of respiration. Heart: Normal heart sounds, no murmur or gallop. Abdomen: Soft, bowel sounds normal. No guarding, rigidity, tenderness, mass, hepatosplenomegaly, dis tention, or bruit noted. Extremities: No leg edema. No calf tenderness. Skin: No rash, ulcer, cellulitis. Lymphatics: No lymph node enlargement in neck, supraclavicular, infraclavicular region. 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 Chest: Unremarkable. External Genitalia: Deferred. Rectal: Deferred. Laboratory Data: White count yesterday 14.5, hemoglobin 15, platelets 299. This morning white count 12.4, hemoglobin 13.6, platelets 231. This morning, sodium 133, potassium 3.5, chloride 98, bicarb 24, BUN 17, creatinine 0.60, glucose 283. Yesterday sodium 132, potassium 4.3, chloride 98, bicarb 2 2, BUN 21, creatinine 0.91, and glucose 345. Liver function tests unremarkable. Troponin 0.04. BNP 174. Urinalysis negative except 3+ glucose. Chest x-ray, right lower lung field pneumonia. EKG: Sinus rhythm, right bundle-branch block. CAT s can of the brain negative for any acute intracranial changes. Impression: 1.Pneumonia. 2.Hypokalemia. 3.Hyponatremia. 4.Diabetes mellitus, type 2, uncontrolled. 5.Mixed hyperlipidemia. 6.Hypertension. 7.Coronary artery disease. 8.Hypothyroidism. 9.Diverticulosis. Plan: Admit the patient to hospital for further evaluation and management of this problem. The syed ent is appropriate for inpatient and is expected to spend 2 midnights in hospital. We will go ahead and continue home medications per order and continue Levaquin and add ceftriaxone for pneumonia. Jaquan e medications will be continued and give DVT prophylaxis per order. Consult neurologist Dr. Thompson [facility] for the footdrop problem. Consult Physical Therapy to ambulate the patient. I will see him tomorrow for followup. The patient lives alone at home and I did ask him if he has fami ly member, he informed me that he has a daughter who lives in [place] who does not work and we talke d about, upon discharge what he would like to do because I do not feel comfortable that he should be living by himself and he told me that leaving this area to go live in [place] is not an option for h im because of financial reasons, and he is comfortable where he is. His daughter also believes that he is comfortable where he is. The least that I have asked him that he should do is he should talk t o his daughter and daughter should check on him at least a few times a day at different times to make sure that he is okay to avoid any kind of problems like the way it happened this past weekend over t weekend where nobody checked on him for 2-3 days and he resulted in [facility]. The patient understands and he will communicate this with his daughter. I will see him tomor row for followup. The patient is expected to spend 2 midnights in the hospital. We will probably consider discharge probably day after tomorrow depending on his condition . ILEANA/MODL Voice ID: [id number]
[2017-12-19] MEDS: CEFTRIAXONE/SWI 1gm 1 GM/10 ML SYR IV SCH ×2 (08:16→21:17)
[2017-12-19] MEDS: INSULIN -REGULAR HUMAN 50 UNIT/0.5 ML ML SQ SCH ×4 (08:16→21:00)
[2017-12-19] MEDS: METOPROLOL XL 50 MG TAB PO SCH (08:17)
[2017-12-19] MEDS: ASPIRIN EC 81 MG TAB PO SCH (08:17)
[2017-12-19] MEDS: ENALAPRIL 10 MG TAB PO SCH ×2 (08:17→21:15)
[2017-12-19] MEDS: CLOPIDOGREL 75 MG TABLET PO SCH (08:17)
[2017-12-19] MEDS: PENTOXIFYLLINE ER 400 MG TAB PO SCH ×2 (08:17→21:16)
[2017-12-19] MEDS: HYDROCODONE/CHLORPHEN 5 ML/OSYR PO PRN (10:45)
[2017-12-19] MEDS: Levofloxacin500mg IV 500 MG/100 ML BAG IV SCH (13:18)
[2017-12-19] MEDS: ATORVASTATIN 40 MG TAB PO SCH (21:15)
--- NOTE | 2017-12-20 00:57 | PN ---
Date of Progress Note: 12/19/2017 Subjective: The patient was seen this morning for followup. No new complaints or problems reported by the patient. Sitting in chair. Fingerstick blood sugar readings reviewed. He did ambulate with physical therapy yesterday. Objective: Vital signs: Reviewed. HEENT: Unremarkable. Lungs: Presence of left basal rales and right-sided rales present, but right-sided rales is somewhat better today than yesterday. Not using accessory muscles of respiration. Heart: Sounds normal. Abdomen: Soft. Bowel sounds normal. No guarding, rigidity, tenderness, or distention. Extremities: No leg edema. Impression: 1.Pneumonia. 2.Right footdrop. 3.Hypertension. 4.Coronary artery disease. 5.Diabetes mellitus. Plan: We will continue to follow up with neurologist, Dr. Thompson. Continue current antibiotics. We will get a chest x-ray done today. Follow up on results. Repeat blood work tomorrow. Ambulation wa s encouraged depending on patient's condition. X-ray results and tomorrow's blood work results, we w ill decide at what point we might be able to discharge him to go home. Details and plan of treatment discussed with the patient. ILEANA/MODL Voice ID: [id number] Report ID: [id number]
[2017-12-20 06:20] LABS: Absolute Lymphocytes (CBC) 1.9 K/uL (0.7-4.9); Absolute Monocytes 1.2 K/uL (0.1-1.3); Absolute Neutrophil 8.3 K/uL (1.8-8.0); Basophils % 0.8 % (0-1.3); Eosinophils % 3.7 % (0-4.4); Hematocrit 39.5 % (39.6-49.0); Lymphocytes % 15.7 % (15.3-44.8); MCH 27.3 pg (27.0-35.0); MCV 83.1 fL (80-100); MPV 9.7 fL (7.6-11.3); Monocytes % 9.8 % (3.3-12.3); RBC Red Blood Cell Count 4.75 M/uL (4.33-5.43)
[2017-12-20 06:32] LABS: Potassium 4.1 mEq/L (3.6-5.0)
[2017-12-20 06:35] LABS: Albumin 2.8 g/dL (3.2-5.5); Bilirubin Total 0.5 mg/dL (0.3-1.2); Magnesium 1.7 mg/dL (1.8-2.5); Protein, Total 7.2 g/dL (6.0-8.3)
[2017-12-20 07:28] VITALS: BMI 27.4
[2017-12-20] MEDS: ISOSORBIDE MONO SR 60 MG TAB PO SCH (08:53)
[2017-12-20] MEDS: PENTOXIFYLLINE ER 400 MG TAB PO SCH ×2 (08:54→21:54)
[2017-12-20] MEDS: ENALAPRIL 10 MG TAB PO SCH ×2 (08:54→21:52)
[2017-12-20] MEDS: METOPROLOL XL 50 MG TAB PO SCH (08:54)
[2017-12-20] MEDS: ENOXAPARIN 40 MG/0.4 ML SQ SCH (08:54)
[2017-12-20] MEDS: INSULIN -REGULAR HUMAN 50 UNIT/0.5 ML ML SQ SCH ×4 (08:54→21:53)
[2017-12-20] MEDS: CLOPIDOGREL 75 MG TABLET PO SCH (08:54)
[2017-12-20] MEDS: ASPIRIN EC 81 MG TAB PO SCH (08:54)
[2017-12-20] MEDS: CEFTRIAXONE/SWI 1gm 1 GM/10 ML SYR IV SCH ×2 (08:56→21:51)
[2017-12-20 09:40] LABS: Blood Morphology Comment NOT SEEN (NOT SEEN); Platelet Estimate ADEQ; Urine White Blood Cell Casts OK
--- NOTE | 2017-12-20 10:30 | RAD REPORT ---
EXAM DESCRIPTION: RAD - Chest Pa And Lat (2 Views) - 12/20/2017 10:23 am CLINICAL HISTORY: Pneumonia COMPARISON: December 17 TECHNIQUE: PA and lateral views of the chest were obtained. FINDINGS: The lungs are underinflated. No failure or volume overload suspected. Trachea is midline. Left hemidiaphragm elevation is again noted. Right lung field opacification seen on the December 17 study has mostly cleared. There is some remnant i nfiltrate in the lateral mid right lung field in the medial right base. Heart size is normal and central vasculature is within normal limits. No pleural effusion or pneumot horax seen. No acute bony finding noted. No aortic abnormality. IMPRESSION: Small amount of remnant infiltrate remains in the mid and lower right lung field. No new or progressive process seen.
[2017-12-20] MEDS: Levofloxacin500mg IV 500 MG/100 ML BAG IV SCH (13:59)
[2017-12-20] MEDS: ATORVASTATIN 40 MG TAB PO SCH (21:51)
--- NOTE | 2017-12-21 01:05 | PN ---
Date of Progress Note: 12/20/2017 Subjective: The patient was seen this morning for followup. Lying in bed, not in any distress. No new complaints or problems reported. Objective: Vital Signs: Reviewed. HEENT: Unremarkable. Lungs: Bilateral good equal air entry. Rales present in both lungs but much better today than yeste rday. Not in any respiratory distress. Heart: Sounds normal. Abdomen: Soft. Bowel sounds normal. No guarding, rigidity, tenderness, or distention. Extremities: No leg edema. Laboratory Data: White count 11.8, hemoglobin 13, platelets 301. Sodium 133, potassium 4.1, chlorid e 99, bicarb 27, BUN 25, creatinine 0.87, glucose 275. Magnesium 1.7. Liver function tests normal. Impression: 1.Pneumonia. 2.Diabetes mellitus. 3.Hypertension. Plan: We will get a chest x-ray done today. Continue antibiotics. Social Service is assisting the patient with longterm placement and longterm is ready to accept the patient upon discharge. Possible discharge tomorrow depending on the patient's condition and today's chest x-ray results. ILEANA/MODL Voice ID: [id number] Report ID: [id number]
[2017-12-21 07:21] VITALS: O2SAT 94
[2017-12-21 08:26] VITALS: BP 134/77; TEMP 97.2
[2017-12-21] MEDS: ENOXAPARIN 40 MG/0.4 ML SQ SCH (08:56)
[2017-12-21] MEDS: ENALAPRIL 10 MG TAB PO SCH (08:57)
[2017-12-21] MEDS: METOPROLOL XL 50 MG TAB PO SCH (08:57)
[2017-12-21] MEDS: ISOSORBIDE MONO SR 60 MG TAB PO SCH (08:57)
[2017-12-21] MEDS: CLOPIDOGREL 75 MG TABLET PO SCH (08:57)
[2017-12-21] MEDS: PENTOXIFYLLINE ER 400 MG TAB PO SCH (08:57)
[2017-12-21] MEDS: ASPIRIN EC 81 MG TAB PO SCH (08:57)
[2017-12-21] MEDS: CEFTRIAXONE/SWI 1gm 1 GM/10 ML SYR IV SCH (08:58)
[2017-12-21] MEDS: INSULIN -REGULAR HUMAN 50 UNIT/0.5 ML ML SQ SCH (08:58)
--- NOTE | 2017-12-22 21:51 | DS ---
Date of Discharge: 12/21/2017 Disposition: [facility] Physical Examination: HEENT: Unremarkable. Lungs: Clear to auscultation. Heart: Sounds normal. Abdomen: Soft. Bowel sounds normal. No guarding, rigidity, tenderness, or distention. Extremities: No leg edema. Laboratory Data: Labs done during this hospitalization: Last white count yesterday 11.8, hemoglobin 13, platelet count of 301. Upon admission, white count 14.5, hemoglobin 15, platelets 299. Yesterd ay, sodium 133, potassium 4.1, chloride 99, bicarb 27, BUN 25, creatinine 0.87, glucose 275, magnesiu m 1.7. Upon admission, sodium 132, potassium 4.8, chloride 98, bicarb 22, BUN 21, creatinine 0.91, g lucose 345. Hospital Course: This is a 77-year-old male patient, who was brought into emergency room after he re ported that he kept on sleeping from to Monday. Please see dictated H and P for more info rmation. The patient went to sleep on at unknown time and on Monday, one of his friends c kristy to check on him and when he woke up, he realized that it was Monday and last thing he remembers is going to bed on . The patient reported that he did not eat or drink anything and he kept on sleeping for those three days. In any case, ambulance was called, he was brought into emergency room, and he was diagnosed as having pneumonia and admitted to the hospital. He was admitted to the hospital with this problem. IV antibiotic, Levaquin and subsequently ceftriaxone was started. Physi yaw Therapy was consulted. Neurology consultation was obtained from Dr. Thompson to help with right carl t brastephan. He has a footdrop problem. The patient lives in [facility]. He has a daughter, abel vega lives in [place]. I did talk to him to see if there is a possibility he can move to [place] marvin ser to his daughter or with his daughter and he declined that as a possibility. Social Service was c onsulted and they actually discussed with the patient and Social Service made arrangements for the della [facility]rell [facility]. This morning when I saw him, he informed me that this is his plan, is to go to [facility] and to start with his planning to stay there for 100 days, but depending on how his health is, he will decide whether he will stay there permanently or he will com e home. If he does come home, then he will start following up with me in my office and he will call office for appointment at that time, otherwise while he is at the [facility], he will be under care of physician at the [facility]. All these details were discussed with him. Final Diagnoses: 1.Pneumonia. 2.Hypokalemia. 3.Hyponatremia. 4.Diabetes mellitus, type 2, uncontrolled. 5.Hyperlipidemia. 6.Hypertension. 7.Coronary artery disease. 8.Right footdrop. 9.Hypothyroidism. 10.Diverticulosis. Discharge Medications And Instructions: Cefuroxime 500 mg twice a day for 1 week, Levaquin 500 mg da jose for 1 week, gemfibrozil 600 mg twice a day, simvastatin 80 mg p.o. daily, fingerstick blood sugar a.c. and h.s. with mild sliding scale, aspirin 81 mg p.o. daily, clopidogrel 75 mg p.o. daily, enala pril 10 mg p.o. twice a day, Flonase nasal spray, 2 sprays each nostril daily; insulin 70/30 32 units 2 times a day, isosorbide mononitrate 60 mg p.o. daily, metoprolol 50 mg p.o. daily, pentoxifylline 400 mg p.o. 2 times a day. Other discharge instructions: Consult Physical Therapy and Occupational Therapy at [facility] and fall precautions. ILEANA/MODCash Voice ID: [id number] Report ID: [id number]
== END 2017-12-21 11:00 | DRG 194 ==
LOC: ER 09:19 → ERHOLD 11:51 → 4TH 13:53
PROVIDERS: ADMIT Internal Medicine; ATTEND Internal Medicine
DX: J18.9 Pneumonia, unspecified organism (principal); E87.1 Hypo-osmolality and hyponatremia; M21.371 Foot drop, right foot; I10 Essential (primary) hypertension; E87.6 Hypokalemia; I25.10 Atherosclerotic heart disease of native coronary artery without angina pectoris; E78.2 Mixed hyperlipidemia; E11.65 Type 2 diabetes mellitus with hyperglycemia; I73.9 Peripheral vascular disease, unspecified; K57.90 Diverticulosis of intestine, part unspecified, without perforation or abscess without bleeding; E03.9 Hypothyroidism, unspecified; Z95.1 Presence of aortocoronary bypass graft
CPT/HCPCS: 36415; 70450; 71045; 71046; 80048; 80053; 80076; 81003; 81015; 82550; 82553; 82962; 83605; 83735; 83880; 84484; 85025; 85610; 85730; 87040; 93005; 97163; 99285; J0696; J1650

== ENCOUNTER 2018-01-16 07:21 | Day surgery (SDC) | payer OTHER ==
[2018-01-15 12:45] LABS: Absolute Lymphocytes (CBC) 2.4 K/uL (0.7-4.9); Absolute Monocytes 0.8 K/uL (0.1-1.3); Absolute Neutrophil 5.7 K/uL (1.8-8.0); Basophils % 1.3 % (0-1.3); Hematocrit 39.6 % (39.6-49.0); Lymphocytes % 25.7 % (15.3-44.8); MCV 84.9 fL (80-100); Monocytes % 8.4 % (3.3-12.3); RBC Red Blood Cell Count 4.66 M/uL (4.33-5.43)
[2018-01-15 12:55] LABS: Protime INR 1.04
[2018-01-15 13:18] LABS: Potassium 5.2 mEq/L (3.6-5.0)
--- NOTE | 2018-01-15 14:39 | EKG ---
Test Date: 2018-01-15 Test Time: 12:27:47 Delinquent Tax Collector: DEQUAN MEASUREMENT RESULTS: Intervals: Rate: 92 CT: 172 QRSD: 128 QT: 416 QTc: 514 [place]: P: 68 CT: 172 QRS: 50 T: 51 INTERPRETIVE STATEMENTS: Normal sinus rhythm Right bundle branch block Septal infarct, age undetermined Possible Inferior infarct, age undetermined Abnormal ECG Compared to ECG 12/17/2017 10:59:04 T-wave abnormality no longer present Possible ischemia no longer present Myocardial infarct finding still present Electronically Signed On 01-15-18 14:39:02 CDT by Curtis Franz
[2018-01-16] MEDS ORDERED: NA CHLORIDE 0.9% 500 ML ONE (07:36)
[2018-01-16] MEDS ORDERED: LIDOCAINE 1% 20 ML MDV ONE (09:36)
[2018-01-16] MEDS ORDERED: HEPA 1000U/500MLS 2,000 UNIT/1,000 ML BAG IV ONE (09:36)
[2018-01-16] MEDS ORDERED: MIDAZOLAM HCL 2 MG/2 ML INJ ONE ×2 (10:00→10:42)
[2018-01-16] MEDS ORDERED: ATROPINE SULF 1 MG/10 ML SYR IV ONE (10:00)
[2018-01-16] MEDS ORDERED: NA CHLORIDE 0.9% 50 ML ONE (10:00)
[2018-01-16] MEDS ORDERED: NITROGLYCERIN 0.4 MG/TAB SL ONE (10:41)
[2018-01-16] MEDS ORDERED: FENTANYL CITR 100 MCG/2 ML ONE ×2 (11:21→11:30)
[2018-01-16] MEDS ORDERED: CLOPIDOGREL 75 MG TABLET ONE (11:25)
[2018-01-16] MEDS ORDERED: ASPIRIN 325 MG TAB ONE (11:25)
[2018-01-16] MEDS ORDERED: ONDANSETRON 4 MG/2 ML VIAL IV PRN (12:49)
[2018-01-16] MEDS ORDERED: NITROGLYCERIN 0.4 MG/TAB SL PRN (13:00)
[2018-01-16] MEDS ORDERED: ACETAMINOPHEN 325 MG TABLET PO PRN (13:00)
[2018-01-16] MEDS ORDERED: NA CHLORIDE 0.9% 1,000 ML IV SCH (13:00)
--- NOTE | 2018-01-16 22:52 | OP ---
Surgeon: Abad Sevilla MD Indications: Mr. Roberto is a patient of Dr. Alvarez. He is 77, has unstable angina, positive stress t est, has peripheral vascular disease and cerebrovascular disease. He was scheduled initially for a h eart catheterization with graft, mammary as well as abdominal angiogram with runoff. However, he end ed up having an intervention in the circumflex tanana vessel. So, we just did his coronaries. Procedures: Left heart catheterization, selective vein graft angiogram, angiography of the left inte rnal mammary artery, stent of the ostial and distal circumflex tanana. Description Of Procedure: The patient was brought to the catheterization lab, prepped and draped in the routine sterile fashion, given 2 mg of Versed for sedation. A 6-Kosovan catheter and sheath were used to do the procedure. A 6-Kosovan sheath was introduced in the right common femoral artery, and w e will do a StarClose to close the case. Diagnostic catheters 6-Kosovan Marquez and left and right we re used to do the coronary anatomy. He had a total LAD with a patent CHILD to the LAD. He had an ost ial 90% circumflex and a 90% distal circumflex, and the graft to the circumflex were occluded. He self d another stump that probably went to a diagonal, but that was occluded. His RCA graft was wide open . His RCA was completely occluded. After seeing the tanana circumflex disease and the absence of th e circumflex graft, we decided to do an intervention. We used an XB 3.0 with side holes, a [place] wi re, two stents 2.5 x 12 for the ostial circumflex and a 2.5 x 16 for the distal circumflex at 14 atmo sphere, 0% residual. No complications. Blood Loss: 10 cc. Final Diagnoses: Coronary artery disease, status post primary stent of the tanana circumflex, ostial and distal, successful. Plan: Plan is to continue medical regimen. The patient got Angiomax, Plavix, and aspirin during the procedure. He will stay overnight and go home tomorrow. We will continue his other regimen otherwi se. We will postpone his abdominal angiogram with runoff for a later date. Total conscious sedation was 1 hour. Operators were myself and Viry Thomas. ROSENDO/DRUL Voice ID: [id number] Report ID: [id number]
[2018-01-17 04:48] LABS: Absolute Lymphocytes (CBC) 1.6 K/uL (0.7-4.9); Absolute Monocytes 0.7 K/uL (0.1-1.3); Absolute Neutrophil 5.9 K/uL (1.8-8.0); Basophils % 0.9 % (0-1.3); Eosinophils % 2.8 % (0-4.4); Hematocrit 37.5 % (39.6-49.0); MCH 27.6 pg (27.0-35.0); MPV 10.1 fL (7.6-11.3); Monocytes % 7.9 % (3.3-12.3); RBC Red Blood Cell Count 4.46 M/uL (4.33-5.43)
[2018-01-17 05:14] LABS: BUN Blood Urea Nitrogen 16 mg/dL (6-20); Bicarbonate 23 mEq/L (21-31); Glucose Level 156 mg/dL (65-120); Potassium 3.8 mEq/L (3.6-5.0); Sodium Level 139 mEq/L (135-145)
[2018-01-17 08:13] VITALS: BP 135/73; TEMP 97.9
[2018-01-17] MEDS ORDERED: CLOPIDOGREL 75 MG TABLET PO SCH (09:00)
[2018-01-17] MEDS ORDERED: ASPIRIN 81 MG CHEWABLE TABLET PO SCH (09:00)
[2018-01-17 11:13] VITALS: O2SAT 98
--- NOTE | 2018-01-17 12:19 | EKG ---
Test Date: 2018-01-17 Test Time: 08:49:01 Coronary Care Unit Nurse: FEDERICA MEASUREMENT RESULTS: Intervals: Rate: 100 IA: 180 QRSD: 116 QT: 396 QTc: 510 [place]: P: 67 IA: 180 QRS: 52 T: 38 INTERPRETIVE STATEMENTS: Normal sinus rhythm Possible Left atrial enlargement Right bundle branch block ST & T wave abnormality, non specific Abnormal ECG Compared to ECG 01/15/2018 12:27:47 ST (T wave) deviation now present Myocardial infarct finding no longer present Electronically Signed On 01-17-18 12:18:56 CDT by Curtis Franz
== END 2018-01-17 10:08 | disposition home or self-care (01) ==
LOC: CCL 07:21 → 4TH 11:53 → CCL 01-17 10:08
DX: I25.810 Atherosclerosis of coronary artery bypass graft(s) without angina pectoris (principal); I25.10 Atherosclerotic heart disease of native coronary artery without angina pectoris; I25.82 Chronic total occlusion of coronary artery; I10 Essential (primary) hypertension; R07.89 Other chest pain; I65.8 Occlusion and stenosis of other precerebral arteries; I70.213 Atherosclerosis of native arteries of extremities with intermittent claudication, bilateral legs; I25.2 Old myocardial infarction; E78.6 Lipoprotein deficiency; E11.9 Type 2 diabetes mellitus without complications; Z87.891 Personal history of nicotine dependence; Z88.0 Allergy status to penicillin; Z88.7 Allergy status to serum and vaccine; Z82.49 Family history of ischemic heart disease and other diseases of the circulatory system
CPT/HCPCS: 36415 ×2; 80048 ×2; 82962 ×6; 85025 ×2; 85347 ×2; 85610; 85730; 93005 ×2; 93455; 93567; C1725; C1893; C9600; J0583; J2250 ×2; J3010 ×2; J7030; 93454

== ENCOUNTER 2018-02-23 06:03 | Day surgery (SDC) | payer OTHER ==
[2018-02-20 13:22] LABS: Absolute Lymphocytes (CBC) 1.9 K/uL (0.7-4.9); Absolute Monocytes 0.7 K/uL (0.1-1.3); Absolute Neutrophil 5.9 K/uL (1.8-8.0); Basophils % 1.2 % (0-1.3); Eosinophils % 4.2 % (0-4.4); Hematocrit 41.6 % (39.6-49.0); Lymphocytes % 21.6 % (15.3-44.8); MCH 28.1 pg (27.0-35.0); MCV 85.1 fL (80-100); MPV 9.7 fL (7.6-11.3); Monocytes % 7.6 % (3.3-12.3)
[2018-02-20 13:38] LABS: Potassium 4.2 mmol/L (3.5-5.1)
--- NOTE | 2018-02-20 13:41 | RAD REPORT ---
EXAM DESCRIPTION: RAD - Chest Pa And Lat (2 Views) - 02/20/2018 1:26 pm CLINICAL HISTORY: Preop chest, pending cardiac catheterization, history of quadruple bypass and diab etes COMPARISON: December 20 TECHNIQUE: PA and lateral views of the chest were obtained. FINDINGS: The lungs are clear of a new or progressive mass or infiltrate. Chronic atelectasis is pre sent at the left base. Left hemidiaphragm is elevated. Lungs are better aerated than seen in December. N o significant failure or volume overload. Sternotomy wires are in place. Heart size is normal and c entral vasculature is within normal limits. No pleural effusion or pneumothorax seen. No acute bony finding noted. No aortic abnormality. IMPRESSION: Mild, chronic left base atelectasis with left hemidiaphragm elevation. No acute cardiopulmonary finding.
[2018-02-20 13:54] LABS: Protime INR 1.05
--- NOTE | 2018-02-21 10:43 | EKG ---
Test Date: 2018-02-20 Test Time: 13:06:11 Nurse Wound: CHLOÉ MEASUREMENT RESULTS: Intervals: Rate: 97 [place]: 172 QRSD: 130 QT: 402 QTc: 510 [place]: P: 66 AZ: 172 QRS: 56 T: 41 INTERPRETIVE STATEMENTS: Normal sinus rhythm Right bundle branch block Septal infarct, age undetermined Abnormal ECG Compared to ECG 01/17/2018 08:49:01 Myocardial infarct finding now present ST (T wave) deviation no longer present Electronically Signed On 02-21-18 10:42:31 CDT by Curtis Franz
[~2018-02-23 06:03] MED LIST: NA CHLORIDE 0.9% 500 ML ONE
[2018-02-23] MEDS ORDERED: LIDOCAINE 1% 20 ML MDV ONE (06:59)
[2018-02-23] MEDS ORDERED: HEPA 1000U/500MLS 2,000 UNIT/1,000 ML BAG IV ONE ×2 (06:59)
[2018-02-23] MEDS ORDERED: MIDAZOLAM HCL 2 MG/2 ML INJ ONE (07:08)
[2018-02-23] MEDS ORDERED: FENTANYL CITR 100 MCG/2 ML ONE (07:08)
[2018-02-23 08:25] VITALS: TEMP 97.2
[2018-02-23 09:56] VITALS: BP 141/74; O2SAT 98
--- NOTE | 2018-02-24 13:39 | OP ---
Date of Procedure: 02/23/2018 Surgeon: Abad Sevilla MD Procedure: Selective bilateral carotid angiogram, abdominal angiogram was runoff. Indications: Mr. Roberto is a 77-year-old with history of coronary artery disease status post bypass , recent stent about 2 weeks ago, brought for staged procedure for carotid angiography and abdominal angiogram was runoff for CVD and PVD. Description Of Procedure: He was brought to the skilled laborer as an outpatient, prepped and draped in rou herman sterile fashion. Given 2 mg of sedation, IV Versed. Right common femoral artery access was obt ained. StarClose was used to close the case. A 6-Nauruan JR4 was used to do selective carotid angiog jorge. His right carotid was fairly unremarkable with some [id number] plaquing his left ostial i nternal carotid of 80-90% stenosis. Left external carotid artery and both common carotid arteries we re normal. Abdominal angiogram was runoff revealed normal iliac, distal aorta, diffuse disease in th e left leg and left SFA as well as plaques concern. Had a total occlusion of the right distal SFA wi th reconstitution below the knee at the popliteal. Complications: None. Blood Loss: 5 cc. Total Conscious Sedation: 45 minutes. Final Diagnoses: Severe cardiovascular disease and severe peripheral artery disease. We will plan to do the carotid first, hopefully left carotid stent. Eventually staging for the right SFA with possible antegrade stick and an intervention with ROUNDHOUSE SUPERVISOR with possible stent. Co-prototype machine operator: Lupe Horner The patient will be going home after 2 hours of bedrest. We will make arrangements for as outpatient procedure later. ROSENDO/GINGER Voice ID: [id number] Report ID: [id number]
== END 2018-02-23 09:56 | disposition home or self-care (01) ==
LOC: CCL 06:03
DX: I70.213 Atherosclerosis of native arteries of extremities with intermittent claudication, bilateral legs (principal); I70.92 Chronic total occlusion of artery of the extremities; I65.22 Occlusion and stenosis of left carotid artery; I10 Essential (primary) hypertension; E78.6 Lipoprotein deficiency; E11.9 Type 2 diabetes mellitus without complications; Z95.1 Presence of aortocoronary bypass graft; Z87.891 Personal history of nicotine dependence; Z88.0 Allergy status to penicillin; Z88.7 Allergy status to serum and vaccine; Z82.49 Family history of ischemic heart disease and other diseases of the circulatory system
CPT/HCPCS: 36222; 36415; 71046; 75630; 80048; 82962; 85025; 85610; 85730; 93005; C1893; J2250; J3010

== ENCOUNTER 2018-04-04 23:43 | Inpatient (IN) | payer OTHER ==
--- OUTSIDE RECORDS SUMMARY | 2018-04-04 23:46 | XMS REPORT | Clinical Summary ---
:1940 Author Organization [facility] Address [address] [place] [address] Phone Care Team Providers Name Role Phone Unavailable Primary Care Provider Unavailable Allergies Active Allergy Reactions Severity Noted Date Comments Penicillins Swelling 03/03/2015 Tetanus Vaccines And Toxoid 07/29/2015 Other reaction(s): blisters Current Medications Prescription Sig. Disp. Refills Start Date End Date Status gemfibrozil (LOPID) Take 600 mg by mouth 2 Active 600 MG tablet (two) times daily. isosorbide Take 60 mg by mouth Active mononitrate (IMDUR) daily Hold for systolic 60 MG 24 hr tablet BP less that 110 or pulse less than 60.. aspirin 81 MG EC Take 81 mg by mouth Active tablet daily. lisinopril Take 10 mg by mouth Active (PRINIVIL,ZESTRIL) 10 daily. MG tablet insulin glargine Inject 30 Units Active (LANTUS) 100 unit/mL subcutaneously every injection morning Use as directed . metoprolol Take 50 mg by mouth Active (LOPRESSOR) 50 MG daily Hold for systolic tablet BP less that 110 or pulse less than 60.. clopidogrel (PLAVIX) Take 75 mg by mouth Active 75 mg tablet daily. simvastatin (ZOCOR) Take 80 mg by mouth Active 80 MG tablet nightly. acetaminophen/diphenh Take by mouth every 6 Active ydramine (TYLENOL PM (six) hours as needed. EXTRA STRENGTH ORAL) traMADol (ULTRAM) 50 Take 50 mg by mouth Active mg tablet every 6 (six) hours as needed for Pain. insulin lispro Inject subcutaneously 3 Active (HUMALOG) 100 unit/mL (three) times daily InPn with meals Per sliding scale. . Active Problems Problem Noted Date Carotid stenosis, left 03/21/2018 Coronary artery disease TIA (transient ischemic attack) Carotid artery occlusion Hyperlipidemia Diabetes mellitus (HCC) Encounters Date Type Specialty Care Team Description 03/21/2018 - Hospital Encounter Cardiology Mary, Carotid stenosis, 03/23/2018 Phillip Dawson, left;Type 2 diabetes MD mellitus with complication, without long-term current use of insulin (HCC);Hyperlipidemia, unspecified hyperlipidemia type;Acute ischemic stroke (HCC);Aphasia 03/21/2018 Procedure Pass 03/21/2018 Surgery Mary ENDARTERECTOMY,CAROTID Phillip Dawson MD 03/20/2018 Anesthesia Event Lionel Mcclain 03/15/2018 Hospital Encounter Phillip Hernandez MD 03/15/2018 Office Visit Cardiology Mary Coronary artery Phillip Dawson, disease involving [place] coronary artery of [place] heart without angina pectoris;Transient cerebral ischemia, unspecified type;Occlusion of left carotid artery;Hyperlipidemia, unspecified hyperlipidemia type 03/15/2018 Orders Only General Internal Medicine after 04/03/2017 Family History Medical History Relation Name Comments Cancer Father Relation Name Status Comments Father Social History Tobacco Use Types Packs/Day Years Used Date Former Smoker Quit: 2000 Smokeless Tobacco: Never Used Alcohol Use Drinks/Week oz/Week Comments No Sex Assigned at Date Recorded Not on file Last Filed Vital Signs Vital Sign Reading Time Taken Blood Pressure 144/82 03/23/2018 7:17 AM CDT Pulse 105 03/23/2018 7:17 AM CDT Temperature 36.1 C (97 F) 03/23/2018 7:17 AM CDT Respiratory Rate 22 03/23/2018 7:17 AM CDT Oxygen Saturation 98% 03/23/2018 7:17 AM CDT Inhaled Oxygen Concentration - - Weight 98.2 kg (216 lb 8 oz) 03/21/2018 7:00 AM CDT Height 182.9 cm (6') 03/21/2018 7:00 AM CDT Body Mass Index 29.36 03/21/2018 7:00 AM CDT Plan of Treatment Date Type Specialty Care Team Description 04/05/2018 Office Visit Cardiology Phillip Hernandez MD [address] [address] [phone] Health Maintenance Due Date Last Done Comments INFLUENZA VACCINE 06/04/2018 Implants Implanted Type Area [employer] 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 Device Expiration Model / Identifier Date Serial / Lot Grft Hemshld Dbl Luis E 0.3x3.0in [id number] - [id number] Graft/P Left: GETINGE 07/04/2022 [id number] / Implanted: Qty: 1 on 03/21/2018 by Phillip Hernandez MD [facility] Arterial IND:MARY:BEN [id number] / [id number] Procedures Procedure Name Priority Date/Time Associated Diagnosis Comments ENDARTERECTOMY,CAROTID 03/21/2018 9:18 AM Stenosis of left CDT carotid artery after 04/03/2017 Results RHYTHM STRIP - SCAN (03/27/2018 8:40 AM)POC-Glucose meter (03/23/2018 2:56 PM) Only the most recent of9 resultswithin the time period is included. Component Value Ref Range POC-Glucose Meter 228 (H)Comment: TESTED AT [address] 70 - 110 mg/[place] [id number] Specimen Performing Laboratory Blood [address] [address] CBC (Hemogram only) (03/23/2018 4:23 AM)Only the most recent of2 resultswithin the time period is included. Component Value Ref Range WBC 9.2 3.5 - 10.5 K/L RBC 4.23 (L) 4.63 - 6.08 M/L Hemoglobin 12.1 (L) 13.7 - 17.5 GM/DL Hematocrit 36.5 (L) 40.1 - 51.0 % MCV 86.3 79.0 - 92.2 fL MCH 28.6 25.7 - 32.2 pg MCHC 33.2 32.3 - 36.5 GM/DL RDW 13.7 11.6 - 14.4 % Platelets 217 150 - 450 K/CU MM MPV 11.5 9.4 - 12.4 fL nRBC 0 0 - 0 /100 WBC Specimen Performing Laboratory Blood [address] [address] Magnesium (03/23/2018 4:23 AM)Only the most recent of2 resultswithin the time period is included. Component Value Ref Range Magnesium 1.6 1.6 - 2.6 mg/dL Specimen Performing Laboratory Blood [address] [address] Basic Metabolic Panel (03/23/2018 4:23 AM)Only the most recent of3 resultswithin the time period is included. Component Value Ref Range Sodium 136 136 - 145 meq/L Potassium 3.7 3.5 - 5.1 meq/L Chloride 106 98 - 107 meq/L CO2 20 (L) 22 - 29 meq/L BUN 14 7 - 21 mg/dL Creatinine 0.80 0.57 - 1.25 mg/dL Glucose 173 (H) 70 - 105 mg/dL Calcium 9.6 8.4 - 10.2 mg/dL EGFR 94Comment: ESTIMATED GFR IS NOT ACCURATE mL/min/1.73 sq m CREATININE CLEARANCE IN PREDICTING GLOMERULAR FILTRATION RATE. ESTIMATED GFR IS NOT APPLICABLE FOR DIALYSIS PATIENTS. Specimen Performing Laboratory Blood [facility] [address] [address] MR brain without IV contrast (03/22/2018 3:23 PM) Specimen Performing Laboratory [facility] Narrative FINAL REPORT MRI Brain without contrast Clinical History: Stroke Technique: MRI of the brain utilizing axial T2, FLAIR, GRE, DWI; sagittal and coronal T1-weighted images. Comparisons: CT 03/22/2018 Findings: There is a punctate acute infarct in the white matter at the left parieto-occipital junction. There is a small infarct of the left precentral gyrus. This demonstrates mild DWI signal hyperintensity without definitive hypointensity on the ADC map and therefore may represent T2 shine through from a chronic infarct versus an acute infarct. There is no acute hemorrhage. There are punctate chronic left cerebellar infarcts. There is minimal periventricular and subcortical white matter T2 hyperintensity, which is nonspecific but compatible with chronic microvascular ischemic change. There is mild generalized parenchymal volume loss without hydrocephalus, midline shift, or apparent mass effect. There are no extra-axial fluid collections. The craniocervical junction is preserved. The major intracranial flow-voids appear patent. There is bilateral cataract surgery. IMPRESSION: Punctate acute infarct in the left parieto-occipital junction white matter. Small infarct of the left precentral gyrus, possibly acute. Clinical correlation is requested. Punctate chronic left cerebellar infarcts. No acute hemorrhage. Signed: Alvin Karimi MD Report Verified Date/Time:03/22/2018 15:36:12 Reading Location: [facility] Radiology Reading Room Procedure Note Interface, External Ris In - 03/22/2018 3:38 PM CDT FINAL REPORT MRI Brain without contrast Clinical History: Stroke Technique: MRI of the brain utilizing axial T2, FLAIR, GRE, DWI; sagittal and coronal T1-weighted images. Comparisons: CT 03/22/2018 Findings: There is a punctate acute infarct in the white matter at the left parieto-occipital junction. There is a small infarct of the left precentral gyrus. This demonstrates mild DWI signal hyperintensity without definitive hypointensity on the ADC map and therefore may represent T2 shine through from a chronic infarct versus an acute infarct. There is no acute hemorrhage. There are punctate chronic left cerebellar infarcts. There is minimal periventricular and subcortical white matter T2 hyperintensity, which is nonspecific but compatible with chronic microvascular ischemic change. There is mild generalized parenchymal volume loss without hydrocephalus, midline shift, or apparent mass effect. There are no extra-axial fluid collections. The craniocervical junction is preserved. The major intracranial flow-voids appear patent. There is bilateral cataract surgery. IMPRESSION: Punctate acute infarct in the left parieto-occipital junction white matter. Small infarct of the left precentral gyrus, possibly acute. Clinical correlation is requested. Punctate chronic left cerebellar infarcts. No acute hemorrhage. Signed: Alvin Karimi MD Report Verified Date/Time: 03/22/2018 15:36:12 Reading Location: [facility] Radiology Reading Room Vitamin B12 and Folate (03/22/2018 11:20 AM) Component Value Ref Range Vitamin B12 256 213 - 816 pg/mL Folate 9.7 >=7.0 ng/mL Specimen Performing Laboratory Blood - Arm, [address] [address] RPR (03/22/2018 11:20 AM) Component Value Ref Range RPR Nonreactive Nonreactive Specimen Performing Laboratory Blood - Arm, [address] [address] TSH (03/22/2018 11:20 AM) Component Value Ref Range TSH 1.71 0.35 - 4.94 uIU/mL Specimen Performing Laboratory Blood - Arm, Right [address] [address] Hemoglobin A1c (03/22/2018 11:20 AM)Only the most recent of2 resultswithin the time period is included. Component Value Ref Range Hemoglobin A1C 7.6 (H) 4.3 - 6.1 % Specimen Performing Laboratory Blood - Arm, [address] [address] Lipid panel (03/22/2018 11:20 AM) Component Value Ref Range Triglycerides 74 mg/dL Cholesterol 116 mg/dL HDL 45 mg/dL LDL Calculated 56 mg/dL Specimen Performing Laboratory Blood - Arm, [address] [address] Narrative Triglyceride Reference Range: Low Risk <150 [id number] High Risk 200-499 Very High Risk>=500 Cholesterol Reference Range: Low Risk <200 [id number] High Risk>240 HDL Cholesterol Reference Range: Low Risk >=60 High Risk <40 LDL Cholesterol Reference Range: Optimal<100 Near Ijpzdip173-497 [id number] Twqd101-211 Very High >=190 CT brain/stroke test design (03/22/2018 6:00 AM) Specimen Performing Laboratory [facility] Narrative FINAL REPORT EXAM: CT head without contrast. CLINICAL HISTORY: Confusion/delirium, altered LOC, unexplained delay in thinkiing COMPARISON: None. TECHNIQUE: CT images of the head were obtained without intravenous contrast.This exam was performed according to our departmental dose optimization program which includes automated exposure control, adjustment of the mA and/or kV according to patient's size and/or use of iterative reconstructive technique. FINDINGS: There is generalized parenchymal atrophy. There is intracranial calcific atherosclerosis. There is no large acute demarcated territorial infarct. There is no acute intracranial hemorrhage, extra-axial fluid collection, mass effect, herniation or hydrocephalus. The basal cisterns are patent. There are bilateral lens replacements. The visualized paranasal sinuses and tympanomastoid cavities are clear. The skull base and calvarium are intact. IMPRESSION: No acute intracranial hemorrhage, mass effect or large acute demarcated territorial infarct. MRI may be performed if clinical suspicion for acute ischemia persists provided there are no contraindications. Findings discussed with Dr. Arredondo of neurology at 6:08 AM on 03/22/18. Signed: Dominick Adams MD Report Verified Date/Time:03/22/2018 06:10:14 Reading Location: [facility] C013Y CT Body Reading Room Procedure Note Interface, External Ris In - 03/22/2018 6:12 AM CDT FINAL REPORT EXAM: CT head without contrast. CLINICAL HISTORY: Confusion/delirium, altered LOC, unexplained delay in thinkiing COMPARISON: None. TECHNIQUE: CT images of the head were obtained without intravenous contrast. This exam was performed according to our departmental dose optimization program which includes automated exposure control, adjustment of the mA and/or kV according to patient's size and/or use of iterative reconstructive technique. FINDINGS: There is generalized parenchymal atrophy. There is intracranial calcific atherosclerosis. There is no large acute demarcated territorial infarct. There is no acute intracranial hemorrhage, extra-axial fluid collection, mass effect, herniation or hydrocephalus. The basal cisterns are patent. There are bilateral lens replacements. The visualized paranasal sinuses and tympanomastoid cavities are clear. The skull base and calvarium are intact. IMPRESSION: No acute intracranial hemorrhage, mass effect or large acute demarcated territorial infarct. MRI may be performed if clinical suspicion for acute ischemia persists provided there are no contraindications. Findings discussed with Dr. Arredondo of neurology at 6:08 AM on 03/22/18. Signed: Dominick Adams MD Report Verified Date/Time: 03/22/2018 06:10:14 Reading Location: [facility] C013 CT Body Reading Room carotid (03/22/2018 6:00 AM) Specimen Performing Laboratory [facility] Narrative FINAL REPORT EXAM: CT Angio, Brain. CT, Carotid Angio CLINICAL HISTORY: Stroke evaluation. COMPARISON: None. TECHNIQUE: CT angiogram of the head and neck was performed with intravenous contrast.2-D and 3-D reformatted images were obtained. This exam was performed according to our departmental dose optimization program which includes automated exposure control, adjustment of the mA and/or kV according to patient's size and/or use of iterative reconstructive technique. FINDINGS: CTA head: There is good flow related enhancement of the bilateral anterior, middle and posterior cerebral arteries and within the basilar artery. The intracranial and skull base internal carotid arteries as well as the vertebral arteries demonstrate normal flow-related enhancement. There is mild to moderate short segment stenosis of the left intradural vertebral artery due to calcified and noncalcified plaque. There is mild short segment stenosis left petrous internal carotid artery and left cavernous internal carotid artery due to calcified and noncalcified plaque. The A1 segment of the left anterior cerebral artery is hypoplastic. There is no vascular aneurysm or flow-limiting stenosis. CTA Neck: The visualized aortic arch and great vessel origins are unremarkable except for calcified atherosclerosis. There is good flow related enhancement of the bilateral common and internal carotid arteries. There are mild atheromatous changes of the right carotid bifurcation and proximal cervical internal carotid artery with calcified and noncalcified plaque. There are step-offs in the left distal common carotid artery, carotid bulb and proximal cervical internal carotid artery which may be due to carotid endarterectomy. There is an intimal flap in the proximal external carotid artery. The vertebral arteries are well visualized. The left vertebral artery arises from the aortic arch. There is mild short segment stenosis at the origin of the left vertebral artery. There is no flow-limiting stenosis or vascular aneurysm. There is diffuse subcutaneous emphysema in the left neck and left superior mediastinum. There is a catheter in the left neck soft tissues along the carotid sheath, with adjacent trace fluid which may be due to recent endarterectomy. The patient is status post median sternotomy and CABG. IMPRESSION: Head CTA: [id number] short segment stenosis of the left intradural vertebral artery. Mild short segment stenosis of the left petrous and left cavernous internal carotid arteries. No vessel occlusion or flow-limiting stenosis. Neck CTA: Post surgical changes from recent left carotid endarterectomy. Mild short segment stenosis of the left vertebral artery origin. No vessel occlusion or hemodynamically significant stenosis by NASCET criteria. Signed: Dominick Adams MD Report Verified Date/Time:03/22/2018 06:35:39 Reading Location: [facility] C013Y CT Body Reading Room Procedure Note Interface, External Ris In - 03/22/2018 6:37 AM CDT FINAL REPORT EXAM: CT Angio, Brain. CT, Carotid Angio CLINICAL HISTORY: Stroke evaluation. COMPARISON: None. TECHNIQUE: CT angiogram of the head and neck was performed with intravenous contrast. 2-D and 3-D reformatted images were obtained. This exam was performed according to our departmental dose optimization program which includes automated exposure control, adjustment of the mA and/or kV according to patient's size and/or use of iterative reconstructive technique. FINDINGS: CTA head: There is good flow related enhancement of the bilateral anterior, middle and posterior cerebral arteries and within the basilar artery. The intracranial and skull base internal carotid arteries as well as the vertebral arteries demonstrate normal flow-related enhancement. There is mild to moderate short segment stenosis of the left intradural vertebral artery due to calcified and noncalcified plaque. There is mild short segment stenosis left petrous internal carotid artery and left cavernous internal carotid artery due to calcified and noncalcified plaque. The A1 segment of the left anterior cerebral artery is hypoplastic. There is no vascular aneurysm or flow-limiting stenosis. CTA Neck: The visualized aortic arch and great vessel origins are unremarkable except for calcified atherosclerosis. There is good flow related enhancement of the bilateral common and internal carotid arteries. There are mild atheromatous changes of the right carotid bifurcation and proximal cervical internal carotid artery with calcified and noncalcified plaque. There are step-offs in the left distal common carotid artery, carotid bulb and proximal cervical internal carotid artery which may be due to carotid endarterectomy. There is an intimal flap in the proximal external carotid artery. The vertebral arteries are well visualized. The left vertebral artery arises from the aortic arch. There is mild short segment stenosis at the origin of the left vertebral artery. There is no flow-limiting stenosis or vascular aneurysm. There is diffuse subcutaneous emphysema in the left neck and left superior mediastinum. There is a catheter in the left neck soft tissues along the carotid sheath, with adjacent trace fluid which may be due to recent endarterectomy. The patient is status post median sternotomy and CABG. IMPRESSION: Head CTA: [id number] short segment stenosis of the left intradural vertebral artery. Mild short segment stenosis of the left petrous and left cavernous internal carotid arteries. No vessel occlusion or flow-limiting stenosis. Neck CTA: Post surgical changes from recent left carotid endarterectomy. Mild short segment stenosis of the left vertebral artery origin. No vessel occlusion or hemodynamically significant stenosis by NASCET criteria. Signed: Dominick Adams MD Report Verified Date/Time: 03/22/2018 06:35:39 Reading Location: [facility] B1 C013Y CT Body Reading Room brain (03/22/2018 6:00 AM) Specimen Performing Laboratory [facility] Nataly FINAL REPORT EXAM: CT Angio, Brain. CT, Carotid Angio CLINICAL HISTORY: Stroke evaluation. COMPARISON: None. TECHNIQUE: CT angiogram of the head and neck was performed with intravenous contrast.2-D and 3-D reformatted images were obtained. This exam was performed according to our departmental dose optimization program which includes automated exposure control, adjustment of the mA and/or kV according to patient's size and/or use of iterative reconstructive technique. FINDINGS: CTA head: There is good flow related enhancement of the bilateral anterior, middle and posterior cerebral arteries and within the basilar artery. The intracranial and skull base internal carotid arteries as well as the vertebral arteries demonstrate normal flow-related enhancement. There is mild to moderate short segment stenosis of the left intradural vertebral artery due to calcified and noncalcified plaque. There is mild short segment stenosis left petrous internal carotid artery and left cavernous internal carotid artery due to calcified and noncalcified plaque. The A1 segment of the left anterior cerebral artery is hypoplastic. There is no vascular aneurysm or flow-limiting stenosis. CTA Neck: The visualized aortic arch and great vessel origins are unremarkable except for calcified atherosclerosis. There is good flow related enhancement of the bilateral common and internal carotid arteries. There are mild atheromatous changes of the right carotid bifurcation and proximal cervical internal carotid artery with calcified and noncalcified plaque. There are step-offs in the left distal common carotid artery, carotid bulb and proximal cervical internal carotid artery which may be due to carotid endarterectomy. There is an intimal flap in the proximal external carotid artery. The vertebral arteries are well visualized. The left vertebral artery arises from the aortic arch. There is mild short segment stenosis at the origin of the left vertebral artery. There is no flow-limiting stenosis or vascular aneurysm. There is diffuse subcutaneous emphysema in the left neck and left superior mediastinum. There is a catheter in the left neck soft tissues along the carotid sheath, with adjacent trace fluid which may be due to recent endarterectomy. The patient is status post median sternotomy and CABG. IMPRESSION: Head CTA: [id number] short segment stenosis of the left intradural vertebral artery. Mild short segment stenosis of the left petrous and left cavernous internal carotid arteries. No vessel occlusion or flow-limiting stenosis. Neck CTA: Post surgical changes from recent left carotid endarterectomy. Mild short segment stenosis of the left vertebral artery origin. No vessel occlusion or hemodynamically significant stenosis by NASCET criteria. Signed: Dominick Adams MD Report Verified Date/Time:03/22/2018 06:35:39 Reading Location: [facility] C013Y CT Body Reading Room Procedure Note Interface, External Ris In - 03/22/2018 6:37 AM CDT FINAL REPORT EXAM: CT Angio, Brain. CT, Carotid Angio CLINICAL HISTORY: Stroke evaluation. COMPARISON: None. TECHNIQUE: CT angiogram of the head and neck was performed with intravenous contrast. 2-D and 3-D reformatted images were obtained. This exam was performed according to our departmental dose optimization program which includes automated exposure control, adjustment of the mA and/or kV according to patient's size and/or use of iterative reconstructive technique. FINDINGS: CTA head: There is good flow related enhancement of the bilateral anterior, middle and posterior cerebral arteries and within the basilar artery. The intracranial and skull base internal carotid arteries as well as the vertebral arteries demonstrate normal flow-related enhancement. There is mild to moderate short segment stenosis of the left intradural vertebral artery due to calcified and noncalcified plaque. There is mild short segment stenosis left petrous internal carotid artery and left cavernous internal carotid artery due to calcified and noncalcified plaque. The A1 segment of the left anterior cerebral artery is hypoplastic. There is no vascular aneurysm or flow-limiting stenosis. CTA Neck: The visualized aortic arch and great vessel origins are unremarkable except for calcified atherosclerosis. There is good flow related enhancement of the bilateral common and internal carotid arteries. There are mild atheromatous changes of the right carotid bifurcation and proximal cervical internal carotid artery with calcified and noncalcified plaque. There are step-offs in the left distal common carotid artery, carotid bulb and proximal cervical internal carotid artery which may be due to carotid endarterectomy. There is an intimal flap in the proximal external carotid artery. The vertebral arteries are well visualized. The left vertebral artery arises from the aortic arch. There is mild short segment stenosis at the origin of the left vertebral artery. There is no flow-limiting stenosis or vascular aneurysm. There is diffuse subcutaneous emphysema in the left neck and left superior mediastinum. There is a catheter in the left neck soft tissues along the carotid sheath, with adjacent trace fluid which may be due to recent endarterectomy. The patient is status post median sternotomy and CABG. 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 Mild short segment stenosis of the left petrous and left cavernous internal carotid arteries. No vessel occlusion or flow-limiting stenosis. Neck CTA: Post surgical changes from recent left carotid endarterectomy. Mild short segment stenosis of the left vertebral artery origin. No vessel occlusion or hemodynamically significant stenosis by NASCET criteria. Signed: Dominick Adams MD Report Verified Date/Time: 03/22/2018 06:35:39 Reading Location: [address] Body Reading Room Potassium-Stat Lab (03/21/2018 2:28 PM)Only the most recent of2 resultswithin the time period is included. Component Value Ref Range Potassium 3.9 3.6 - 5.5 meq/L Specimen Performing Laboratory Blood, Arterial - Line, Arterial [address] [address] Sodium Na-Stat Lab (03/21/2018 2:28 PM)Only the most recent of2 resultswithin the time period is included. Component Value Ref Range Sodium 140 135 - 148 meq/L Specimen Performing Laboratory Blood, Arterial - Line, Arterial [address] [address] Glucose-Stat Lab (03/21/2018 2:28 PM)Only the most recent of2 resultswithin the time period is included. Component Value Ref Range Glucose 106 70 - 110 mg/dL Specimen Performing Laboratory Blood, Arterial - Line, Arterial [address] [address] HGB/HCT (H&H)-Stat Lab (03/21/2018 2:28 PM)Only the most recent of2 resultswithin the time period is included. Component Value Ref Range Hemoglobin 12.5 (L) 13.0 - 16.8 g/dL Hematocrit 37.0 (L) 40.0 - 50.0 % Specimen Performing Laboratory Blood, Arterial - Line, Arterial [address] [address] Tissue Exam (03/21/2018 12:42 PM) Component Value Ref Range Case Report Surgical Pathology Report Case: [id number] Authorizing Provider:Phillip Hernandez, Collected: 03/21/2018 1242 Ordering Location: [facility] Received: 03/21/2018 1331 PERIOPERATIVE SERVICES Pathologist: Mal Boyce MD Specimen:Plaque, LEFT CAROTID ARTERY PLAUE DIAGNOSIS ARTERY, LEFT CAROTID, ENDARTERECTOMY: CALCIFIC ATHEROSCLEROTIC PLAQUE Signing Pathologist Direct Phone Line: [phone] CPT Code(s) 71344; 77913 CLINICAL HISTORY Carotid stenosis SPECIMEN SOURCE Left carotid artery plaque GROSS DESCRIPTION In saline labeled "plaque", description "left carotid artery plaque" is a 2.5 x 1.5 x 0.2 cm aggregate of prather-white to yellow-sky, rubbery, focally calcified fibrous tissue. Music Minister sections are submitted in cassette A1 for decalcification. DB/ pl MICROSCOPIC DESCRIPTION Performed Specimen Performing Laboratory Tissue - Plaque [address] [address] [facility] (ABG,NA,K,H&H,GLUCOSE) (03/21/2018 12:04 PM) Specimen Performing Laboratory Blood, Arterial Narrative The following orders were created for panel order [facility] (ABG,NA,K,H&H,GLUCOSE). Procedure Abnormality Status --------- ------ Blood gas, arterial[[id number]]AbnormalFinal result Sodium Na-Stat Lab[[id number]] NormalFinal result Potassium-Stat Lab[[id number]] NormalFinal result Glucose-Stat Lab[[id number]] NormalFinal result HGB/HCT (H&H)-Stat Lab[[id number]] Abnormal Final result Please view results for these tests on the individual orders. Calcium, Ionized (03/21/2018 12:04 PM) Component Value Ref Range Calcium, Ion 1.14 1.12 - 1.27 mmol/L pH, Blood 7.42 Specimen Performing Laboratory Blood [address] [address] Blood gas, arterial (03/21/2018 12:04 PM) Component Value Ref Range pH, Arterial 7.44 7.35 - 7.45 pCO2, Arterial 37 35 - 45 mmHg pO2, Arterial 218 (H) 80 - 90 mmHg O2 Sat, Arterial 99.5 (H) 96.0 - 97.0 % HCO3, Arterial 25 21 - 29 mmol/L Base Excess, Arterial 0.4 -2.0 - 3.0 mmol/L Patient Temperature 36.1 C FIO2 60.0 % Specimen Performing Laboratory Blood, Arterial [address] [address] XR chest 1 view portable / bedside (03/21/2018 8:38 AM) Specimen Performing Laboratory GE RIS Narrative FINAL REPORT Chest one view Discussion: Heart, lungs, bones, soft tissues unremarkable. No effusion or pneumothorax. Signed: Xiomara Hunt MD Report Verified Date/Time:03/21/2018 09:49:21 Reading Location: [facility] Radiology Reading Room Procedure Note Interface, External Ris In - 03/21/2018 9:51 AM CDT FINAL REPORT Chest one view Discussion: Heart, lungs, bones, soft tissues unremarkable. No effusion or pneumothorax. Signed: Xiomara Hunt MD Report Verified Date/Time: 03/21/2018 09:49:21 Reading Location: [facility] Radiology Reading Room SFUSION SERVICE REPORT - SCAN (03/16/2018 5:52 PM)Type and screen, automated (03/15/2018 12:12 PM) Component Value Ref Range ABO/RH AUTOMATED (BEAKER) O POSITIVE Ab Scrn NEGATIVE Specimen Performing Laboratory Blood [address] [address] CBC with platelet count + automated diff (03/15/2018 12:11 PM) Component Value Ref Range WBC 8.1 3.5 - 10.5 K/L RBC 4.73 4.63 - 6.08 M/L Hemoglobin 13.6 (L) 13.7 - 17.5 GM/DL Hematocrit 41.6 40.1 - 51.0 % MCV 87.9 79.0 - 92.2 fL MCH 28.8 25.7 - 32.2 pg MCHC 32.7 32.3 - 36.5 GM/DL RDW 14.1 11.6 - 14.4 % Platelets 234 150 - 450 K/CU MM MPV 12.3 9.4 - 12.4 fL nRBC 0 0 - 0 /100 WBC % Neutros 63 % % Lymphs 23 % % Monos 7 % % Eos 6 % % Baso 2 % # Neutros 5.06 1.78 - 5.38 K/L # Lymphs 1.86 1.32 - 3.57 K/L # Monos 0.58 0.30 - 0.82 K/L # Eos 0.44 0.04 - 0.54 K/L # Baso 0.12 (H) 0.01 - 0.08 K/L Immature Granulocytes-Relative 0 0 - 1 % Specimen Performing Laboratory Blood [address] [address] Prothrombin time/INR (03/15/2018 12:11 PM) Component Value Ref Range Protime 14.1 11.7 - 14.7 seconds INR 1.1 <=5.9 Specimen Performing Laboratory Blood [address] [address] Narrative RECOMMENDED COUMADIN/WARFARIN INR THERAPY RANGES STANDARD DOSE: 2.0 - 3.0 Includes: PROPHYLAXIS for venous thrombosis, systemic embolization; TREATMENT for venous thrombosis and/or pulmonary embolus. HIGH RISK: Target INR is 2.5-3.5 for patients with mechanical heart valves. CBC with platelet count + automated diff (03/15/2018 12:11 PM) Specimen Performing Laboratory Blood Narrative The following orders were created for panel order CBC with platelet count + automated diff. Procedure Abnormality Status --------- ------ CBC with platelet count ...[[id number]]AbnormalFinal result Please view results for these tests on the individual orders. Electrocardiogram, 12-lead (03/15/2018 11:52 AM) Specimen Performing Laboratory GE MUSE Narrative Ventricular Rate 82 BPM Atrial Rate 82 BPM P-R Interval 178 ms QRS Duration 132 ms Q-T Interval 416 ms QTC Calculation(Bazett) 486 ms P [place] 74 degrees R [place] 87 degrees T [place] 71 degrees Normal sinus rhythm Right bundle branch block Abnormal ECG No previous ECGs available Confirmed by MD Thrasher Roberto ([id number]) on 03/15/2018 2:46:22 PM Procedure Note Interface, External Ris In - 03/15/2018 2:46 PM CDT Ventricular Rate 82 BPM Atrial Rate 82 BPM P-R Interval 178 ms QRS Duration 132 ms Q-T Interval 416 ms QTC Calculation(Bazett) 486 ms P [place] 74 degrees R [place] 87 degrees T [place] 71 degrees Normal sinus rhythm Right bundle branch block Abnormal ECG No previous ECGs available Confirmed by MD Thrasher Roberto ([id number]) on 03/15/2018 2:46:22 PM after 04/03/2017
--- OUTSIDE RECORDS SUMMARY | 2018-04-04 23:46 | XMS REPORT ---
:1940 [facility] Address [address] [place] [address] Care Team Providers Name Role Phone HARINDER HERNANDEZ Unavailable Unavailable Problems This patient has no known problems. Allergies, Adverse Reactions, Alerts This patient has no known allergies or adverse reactions. Medications This patient has no known medications. Results Test Description Test Time Test Comments Text Results Atomic Results Result Comments POCT-GLUCOSE METER 2018-03-23 14:57:00 Test Item Value Reference Range Comments POC-GLUCOSE METER (BEAKER) (test 228 mg/dL 70-110 TESTED AT [facility] [address] [facility] [address] TISSUE [id number] 12:31:00Surgical Pathology Report Case: [id number] Authorizing Provider: Harinder Hernandez, Collected: 03/21/2018 1242 OrderingLocation: [facility] Received: 2017 1331 PERIOPERATIVE SERVICES Pathologist: Mal Boyce MD Specimen: Plaque, LEFT CAROTID ARTERY PLAUE ARTERY, LEFT CAROTID, ENDARTERECTOMY:CALCIFIC ATHEROSCLEROTIC PLAQUE Signing Pathologist Direct Phone Line: [phone] signed by Mal Boyce MD on 2017 at 12:31 [id number]; [id number] stenosisLeft carotid artery plaqueIn saline labeled "plaque", description "left carotid artery plaque" is a 2.5 x 1.5 x 0.2 cm aggregate of prahter-white to yellow-sky, rubbery, focally calcified fibrous tissue. Glove Wrapper sections are submitted in cassette A1 for decalcification. DB/[id number] 05:47:00 Test Item Value Reference Range Comments MAGNESIUM (BEAKER) (test tjmu=394) 1.6 mg/dL 1.6-2.6 BASIC METABOLIC [id number] 05:47:00 Test Item Value Reference Range Comments SODIUM (BEAKER) (test 136 meq/L 136-145 rrxv=903) POTASSIUM (BEAKER) (test 3.7 meq/L 3.5-5.1 eysq=936) CHLORIDE (BEAKER) (test 106 meq/L 98-107 lpsa=678) CO2 (BEAKER) (test 20 meq/L 22-29 kzya=573) BLOOD UREA NITROGEN 14 mg/dL 7-21 (BEAKER) (test uxmu=249) CREATININE (BEAKER) (test 0.80 mg/dL 0.57-1.25 keac=913) GLUCOSE RANDOM (BEAKER) 173 mg/dL 70-105 (test daqw=212) CALCIUM (BEAKER) (test 9.6 mg/dL 8.4-10.2 zado=414) EGFR (BEAKER) (test 94 mL/min/1.73 sq m ESTIMATED GFR IS NOT lefc=6792) ACCURATE CREATININE CLEARANCE IN PREDICTING GLOMERULAR FILTRATION RATE. ESTIMATED GFR IS NOT APPLICABLE FOR DIALYSIS PATIENTS. CBC (HEMOGRAM ONLY)2018-03-23 04:50:00 Test Item Value Reference Range Comments WHITE BLOOD CELL COUNT (BEAKER) (test hlox=294) 9.2 K/ L 3.5-10.5 RED BLOOD CELL COUNT (BEAKER) (test dfmm=166) 4.23 M/ L 4.63-6.08 HEMOGLOBIN (BEAKER) (test ikjo=047) 12.1 GM/DL 13.7-17.5 HEMATOCRIT (BEAKER) (test lqca=504) 36.5 % 40.1-51.0 MEAN CORPUSCULAR VOLUME (BEAKER) (test uxix=416) 86.3 fL 79.0-92.2 MEAN CORPUSCULAR HEMOGLOBIN (BEAKER) (test 28.6 pg 25.7-32.2 kltf=825) MEAN CORPUSCULAR HEMOGLOBIN CONC (BEAKER) (test 33.2 GM/DL 32.3-36.5 qrml=311) RED CELL DISTRIBUTION WIDTH (BEAKER) (test 13.7 % 11.6-14.4 ymax=485) PLATELET COUNT (BEAKER) (test jthb=049) 217 K/CU MM 150-450 MEAN PLATELET VOLUME (BEAKER) (test duak=328) 11.5 fL 9.4-12.4 NUCLEATED RED BLOOD CELLS (BEAKER) (test 0 /100 WBC 0-0 kiwv=257) [id number] 00:50:00 Test Item Value Reference Range Comments RPR SCREEN (BEAKER) (test bkng=408) Nonreactive Nonreactive POCT-GLUCOSE [id number] 21:01:00 Test Item Value Reference Range Comments POC-GLUCOSE METER (BEAKER) 243 mg/dL 70-110 TESTED AT [address] (test epln=2821) [place] [address] LIPID [id number] 19:04:00 Test Item Value Reference Range Comments TRIGLYCERIDES (BEAKER) (test hbtg=509) 74 mg/dL CHOLESTEROL (BEAKER) (test ojcu=984) 116 mg/dL HDL CHOLESTEROL (BEAKER) (test bpec=482) 45 mg/dL LDL CHOLESTEROL CALCULATED (BEAKER) (test 56 mg/dL cbaz=731) Triglyceride Reference Range: Low Risk <150 Borderline 150- 199 High Risk 200-499 Very High Risk >=500Cholesterol Reference Range: Low Risk <200 Borderline 200-239 High Risk > 240HDL Cholesterol Reference Range: Low Risk >=60 High Risk <40LDL Cholesterol Reference Range: Optimal <100 Near Optimal 100-129 Borderline 130-159 High 160-189 Very High >=[id number] 18:42:00 Test Item Value Reference Range Comments THYROID STIMULATING HORMONE (BEAKER) (test 1.71 uIU/mL 0.35-4.94 dnsu=165) VITAMIN B12 AND [id number] 18:42:00 Test Item Value Reference Range Comments VITAMIN B12 (BEAKER) (test rgml=500) 256 pg/mL 213-816 FOLATE (BEAKER) (test wwyt=737) 9.7 ng/mL >=7.0 POCT-GLUCOSE [id number] 16:33:00 Test Item Value Reference Range Comments POC-GLUCOSE METER (BEAKER) 171 mg/dL 70-110 TESTED AT [address] (test voqs=3849) [place] [address] MR, BRAIN, WITHOUT [id number] 15:36:00Reason for exam:->Ischemic Stroke EvaluationFINAL REPORT MRI Brain without contrast Clinical History: [...] infarcts. There is minimal periventricular and subcortical whitematter T2 hyperintensity, which is nonspecific but compatible [...] junction white matter. Small infarct of the leftprecentral gyrus, possibly acute. Clinical correlation is requested. Punctate chronic left cerebellar infarcts. No acute hemorrhage. Signed: Alvin Karimi MDReport Verified Date/Time: 03/22/2018 15:36:12 Reading Location: [facility] Radiology Reading Room HEMOGLOBIN [id number] 14:20:00 Test Item Value Reference Range Comments HEMOGLOBIN A1C (BEAKER) (test nnmr=904) 7.6 % 4.3-6.1 POCT-GLUCOSE [id number] 07:51:00 Test Item Value Reference Range Comments POC-GLUCOSE METER (BEAKER) 131 mg/dL 70-110 TESTED AT [address] (test otqq=6720) [facility] [address] CT, CTANGIO [id number] 06:35:00Reason for exam:->Stroke evaluationFINAL REPORT EXAM: CT Angio, Brain. CT, Carotid [...] use of iterative reconstructive technique. FINDINGS: CTA head:There is good flow related enhancement of the [...] no vascular aneurysm or flow-limiting stenosis. CTA Neck:The visualized aortic arch and great vessel origins are unremarkable except for calcified atherosclerosis. There is good flow related enhancement of the bilateral common and internal carotid arteries.There are mild atheromatous changes of the right [...] from the aortic arch. There is mild shortsegment stenosis at the origin of the left [...] is status post median sternotomy and CABG. 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 Mild short segment stenosis of the left petrous and left cavernous internal carotid arteries. No vessel occlusion or flow-limiting stenosis. Neck CTA: Post surgical changes from recent left carotid endarterectomy. Mild short segment stenosis of the left vertebral artery origin. No vessel occlusion or hemodynamically significant stenosis by NASCET criteria. Signed: Joceline Adams MDReport Verified Date/Time: 03/22/2018 06:35:39 Reading Location: [address] Body Reading Room CT, CAROTID, [id number] 06:35:00Reason for exam:->Stroke evaluaitonFINAL REPORT EXAM: CT Angio, Brain. CT, Carotid [...] use of iterative reconstructive technique. FINDINGS: CTA head:There is good flow related enhancement of the [...] no vascular aneurysm or flow-limiting stenosis. CTA Neck:The visualized aortic arch and great vessel origins are unremarkable except for calcified atherosclerosis. There is good flow related enhancement of the bilateral common and internal carotid arteries.There are mild atheromatous changes of the right [...] from the aortic arch. There is mild shortsegment stenosis at the origin of the left [...] is status post median sternotomy and CABG. 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 Mild short segment stenosis of the left petrous and left cavernous internal carotid arteries. No vessel occlusion or flow-limiting stenosis. Neck CTA: Post surgical changes from recent left carotid endarterectomy. Mild short segment stenosis of the left vertebral artery origin. No vessel occlusion or hemodynamically significant stenosis by NASCET criteria. Signed: Joceline Adams Verified Date/Time: 03/22/2018 06:35:39 Reading Location: [address] Body Reading [facility]STR[facility]KE [id number] 06:10:00Reason for exam:->delay in thinkiingFINAL REPORT EXAM: CT head without contrast. CLINICAL HISTORY: Confusion/delirium, altered LOC, unexplained delay in thinkiing COMPARISON: None. TECHNIQUE: CT images of the headwere obtained without intravenous contrast. This exam was performed according to our departmental dose optimization program which includes automated exposure control , adjustment of the mA and/or kV according to patient's size and/or use of iterative reconstructive technique. FINDINGS: There is generalized parenchymal atrophy. There is intracranial calcific atherosclerosis. There is no large acute demarcated territorial infarct. There is no acute intracranial hemorrhage , extra-axial fluid collection, mass effect, herniation or [...] with Dr. Arredondo of neurology at 6:08 Gian 03/22/18. Signed: Joceline Adams Verified Date/Time: 03/22/2018 06: 10:14 Reading Location: [address] Body Reading Room POCT-GLUCOSE [id number] 05:15:00 Test Item Value Reference Range Comments POC-GLUCOSE METER (BEAKER) 111 mg/dL 70-110 TESTED AT [address] (test ssjo=6694) [facility] [address] [id number] 04:33:00 Test Item Value Reference Range Comments MAGNESIUM (BEAKER) (test izmo=162) 1.8 mg/dL 1.6-2.6 BASIC METABOLIC [id number] 04:33:00 Test Item Value Reference Range Comments SODIUM (BEAKER) (test 138 meq/L 136-145 ynew=626) POTASSIUM (BEAKER) (test 4.0 meq/L 3.5-5.1 ivxe=918) CHLORIDE (BEAKER) (test 107 meq/L 98-107 xawg=090) CO2 (BEAKER) (test 20 meq/L 22-29 hzlp=192) BLOOD UREA NITROGEN 13 mg/dL 7-21 (BEAKER) (test ickr=712) CREATININE (BEAKER) (test 0.78 mg/dL 0.57-1.25 tfej=767) GLUCOSE RANDOM (BEAKER) 111 mg/dL 70-105 (test feuw=697) CALCIUM (BEAKER) (test 9.7 mg/dL 8.4-10.2 qoam=336) EGFR (BEAKER) (test 97 mL/min/1.73 sq m ESTIMATED GFR IS NOT owrr=2552) ACCURATE CREATININE CLEARANCE IN PREDICTING GLOMERULAR FILTRATION RATE. ESTIMATED GFR IS NOT APPLICABLE FOR DIALYSIS PATIENTS. CBC (HEMOGRAM ONLY)2018-03-22 04:21:00 Test Item Value Reference Range Comments WHITE BLOOD CELL COUNT (BEAKER) (test qcty=780) 10.4 K/ L 3.5-10.5 RED BLOOD CELL COUNT (BEAKER) (test cjxa=575) 4.86 M/ L 4.63-6.08 HEMOGLOBIN (BEAKER) (test erbo=187) 13.8 GM/DL 13.7-17.5 HEMATOCRIT (BEAKER) (test tvwl=728) 42.7 % 40.1-51.0 MEAN CORPUSCULAR VOLUME (BEAKER) (test yeej=078) 87.9 fL 79.0-92.2 MEAN CORPUSCULAR HEMOGLOBIN (BEAKER) (test 28.4 pg 25.7-32.2 lhmn=109) MEAN CORPUSCULAR HEMOGLOBIN CONC (BEAKER) (test 32.3 GM/DL 32.3-36.5 gpkm=879) RED CELL DISTRIBUTION WIDTH (BEAKER) (test 13.6 % 11.6-14.4 jrhx=380) PLATELET COUNT (BEAKER) (test fcad=883) 228 K/CU MM 150-450 MEAN PLATELET VOLUME (BEAKER) (test jusv=801) 11.6 fL 9.4-12.4 NUCLEATED RED BLOOD CELLS (BEAKER) (test 0 /100 WBC 0-0 vxsz=464) POCT-GLUCOSE [id number] 21:59:00 Test Item Value Reference Range Comments POC-GLUCOSE METER (BEAKER) 139 mg/dL 70-110 TESTED AT [address] (test zxuz=1883) [facility] [address] POCT-GLUCOSE [id number] 18:33:00 Test Item Value Reference Range Comments POC-GLUCOSE METER (BEAKER) 117 mg/dL 70-110 TESTED AT [address] (test oqtp=4688) [facility] [address] POCT-GLUCOSE [id number] 17:54:00 Test Item Value Reference Range Comments POC-GLUCOSE METER (BEAKER) 101 mg/dL 70-110 TESTED AT [address] (test xlhs=1957) [facility] [address] GLUCOSE-STAT [id number] 14:40:00 Test Item Value Reference Range Comments GLUCOSE RANDOM (BEAKER) (test oxcw=370) 106 mg/dL 70-110 SODIUM NA-STAT [id number] 14:40:00 Test Item Value Reference Range Comments SODIUM (BEAKER) (test blwp=059) 140 meq/L 135-148 POTASSIUM-STAT [id number] 14:40:00 Test Item Value Reference Range Comments POTASSIUM (BEAKER) (test gdnp=876) 3.9 meq/L 3.6-5.5 HGB/HCT (H&H) - STAT [id number] 14:40:00 Test Item Value Reference Range Comments HEMOGLOBIN (BEAKER) (test wypc=940) 12.5 g/dL 13.0-16.8 HEMATOCRIT (BEAKER) (test fbln=371) 37.0 % 40.0-50.0 GLUCOSE-STAT [id number] 12:16:00 Test Item Value Reference Range Comments GLUCOSE RANDOM (BEAKER) (test wtpi=532) 96 mg/dL 70-110 SODIUM NA-STAT [id number] 12:16:00 Test Item Value Reference Range Comments SODIUM (BEAKER) (test xgiu=391) 141 meq/L 135-148 POTASSIUM-STAT [id number] 12:16:00 Test Item Value Reference Range Comments POTASSIUM (BEAKER) (test wtge=284) 3.8 meq/L 3.6-5.5 CALCIUM, [id number] 12:16:00 Test Item Value Reference Range Comments CALCIUM IONIZED (BEAKER) (test wyri=182) 1.14 mmol/L 1.12-1.27 PH, BLOOD (BEAKER) (test kyxs=6714) 7.42 BLOOD GAS, [id number] 12:16:00 Test Item Value Reference Range Comments PH ARTERIAL (BEAKER) (test llbb=290) 7.44 7.35-7.45 PCO2 ARTERIAL (BEAKER) (test lpti=168) 37 mmHg 35-45 PO2 ARTERIAL (BEAKER) (test kjgy=526) 218 mmHg 80-90 O2 SATURATION ARTERIAL (BEAKER) (test rvym=081) 99.5 % 96.0-97.0 HCO3 ARTERIAL (BEAKER) (test oizr=772) 25 mmol/L 21-29 BASE EXCESS ARTERIAL (BEAKER) (test ledz=034) 0.4 mmol/L -2.0-3.0 PATIENT TEMPERATURE (BEAKER) (test aact=8512) 36.1 C FIO2 (BEAKER) (test zsfa=4140) 60.0 % HGB/HCT (H&H) - STAT [id number] 12:16:00 Test Item Value Reference Range Comments HEMOGLOBIN (BEAKER) (test tnzn=232) 13.1 g/dL 13.0-16.8 HEMATOCRIT (BEAKER) (test aago=274) 39.0 % 40.0-50.0 RAD, CHEST, 1 VIEW, NON [id number] 09:49:00Reason for exam:->pre op for Left CEAShould this be performed at the bedside?->YesFINAL REPORT Chest one view Discussion: Heart, lungs, bones, soft tissues unremarkable. No effusion or pneumothorax. Signed: Xiomara Hunt Verified Date/Time: 03/21/201809:49:21 Reading Location: [facility] Reading Room Electronically signed by: XIOMARA HUNT M.D. on 09:49 AMPOCT-GLUCOSE [id number] 09:04:00 Test Item Value Reference Range Comments POC-GLUCOSE METER (BEAKER) 127 mg/dL 70-110 TESTED AT [facility] [address] [facility] (test apql=9840) [facility] [address] HEMOGLOBIN [id number] 14:36:00 Test Item Value Reference Range Comments HEMOGLOBIN A1C (BEAKER) (test ujih=083) 8.1 % 4.3-6.1 CBC W/PLT COUNT & AUTO [id number] 13:50:00 Test Item Value Reference Range Comments WHITE BLOOD CELL COUNT (BEAKER) (test tnod=584) 8.1 K/ L 3.5-10.5 RED BLOOD CELL COUNT (BEAKER) (test jjmk=811) 4.73 M/ L 4.63-6.08 HEMOGLOBIN (BEAKER) (test gurv=468) 13.6 GM/DL 13.7-17.5 HEMATOCRIT (BEAKER) (test wqsc=125) 41.6 % 40.1-51.0 MEAN CORPUSCULAR VOLUME (BEAKER) (test ocvv=557) 87.9 fL 79.0-92.2 MEAN CORPUSCULAR HEMOGLOBIN (BEAKER) (test 28.8 pg 25.7-32.2 fygf=007) MEAN CORPUSCULAR HEMOGLOBIN CONC (BEAKER) (test 32.7 GM/DL 32.3-36.5 zzjz=486) RED CELL DISTRIBUTION WIDTH (BEAKER) (test 14.1 % 11.6-14.4 qich=903) PLATELET COUNT (BEAKER) (test qynt=900) 234 K/CU MM 150-450 MEAN PLATELET VOLUME (BEAKER) (test ohfz=532) 12.3 fL 9.4-12.4 NUCLEATED RED BLOOD CELLS (BEAKER) (test 0 /100 WBC 0-0 dhyi=566) NEUTROPHILS RELATIVE PERCENT (BEAKER) (test 63 % ozhe=189) LYMPHOCYTES RELATIVE PERCENT (BEAKER) (test 23 % qcwc=571) MONOCYTES RELATIVE PERCENT (BEAKER) (test 7 % rtto=788) EOSINOPHILS RELATIVE PERCENT (BEAKER) (test 6 % wogm=464) BASOPHILS RELATIVE PERCENT (BEAKER) (test 2 % kbuz=895) NEUTROPHILS ABSOLUTE COUNT (BEAKER) (test 5.06 K/ L 1.78-5.38 cync=392) LYMPHOCYTES ABSOLUTE COUNT (BEAKER) (test 1.86 K/ L 1.32-3.57 vhqm=991) MONOCYTES ABSOLUTE COUNT (BEAKER) (test 0.58 K/ L 0.30-0.82 alme=549) EOSINOPHILS ABSOLUTE COUNT (BEAKER) (test 0.44 K/ L 0.04-0.54 dvsn=962) BASOPHILS ABSOLUTE COUNT (BEAKER) (test 0.12 K/ L 0.01-0.08 sarv=027) IMMATURE GRANULOCYTES-RELATIVE PERCENT (BEAKER) 0 % 0-1 (test upay=3405) BASIC METABOLIC [id number] 13:33:00 Test Item Value Reference Range Comments SODIUM (BEAKER) (test 139 meq/L 136-145 qabb=915) POTASSIUM (BEAKER) (test 4.5 meq/L 3.5-5.1 dstl=568) CHLORIDE (BEAKER) (test 104 meq/L 98-107 immf=126) CO2 (BEAKER) (test 27 meq/L 22-29 jpqb=545) BLOOD UREA NITROGEN 13 mg/dL 7-21 (BEAKER) (test aqup=445) CREATININE (BEAKER) (test 0.85 mg/dL 0.57-1.25 wgut=365) GLUCOSE RANDOM (BEAKER) 104 mg/dL 70-105 (test exfc=742) CALCIUM (BEAKER) (test 9.6 mg/dL 8.4-10.2 hprc=385) EGFR (BEAKER) (test 88 mL/min/1.73 sq m ESTIMATED GFR IS NOT cwfz=7302) ACCURATE CREATININE CLEARANCE IN PREDICTING GLOMERULAR FILTRATION RATE. ESTIMATED GFR IS NOT APPLICABLE FOR DIALYSIS PATIENTS. PROTHROMBIN [id number] 13:32:00 Test Item Value Reference Range Comments PROTIME (BEAKER) (test diqb=077) 14.1 seconds 11.7-14.7 INR (BEAKER) (test idvw=319) 1.1 <=5.9 RECOMMENDED COUMADIN/WARFARIN INR THERAPY RANGESSTANDARD DOSE: 2.0 - 3.0 Includes: PROPHYLAXIS forvenous thrombosis, systemic embolization; TREATMENT for venous thrombosis and/or pulmonary embolus.HIGH RISK: Target INR is 2.5-3.5 for patients with mechanical heart valves.
[2018-04-05] MEDS ORDERED: MORPHINE 4 MG/ML SYR ONE ×2 (00:14→01:26)
[2018-04-05] MEDS ORDERED: ONDANSETRON 4 MG/2 ML VIAL ONE ×2 (00:14→01:26)
[2018-04-05 00:33] LABS: Absolute Lymphocytes (CBC) 1.5 K/uL (0.7-4.9); Absolute Neutrophil 12.1 K/uL (1.8-8.0); Basophils % 0.9 % (0-1.3); Eosinophils % 2.1 % (0-4.4); Hematocrit 36.6 % (39.6-49.0); Lymphocytes % 9.9 % (15.3-44.8); MCH 29.2 pg (27.0-35.0); MCV 84.2 fL (80-100); MPV 9.2 fL (7.6-11.3); Monocytes % 6.9 % (3.3-12.3); RBC Red Blood Cell Count 4.35 M/uL (4.33-5.43)
[2018-04-05 00:46] LABS: Potassium 4.2 mmol/L (3.5-5.1)
--- NOTE | 2018-04-05 02:39 | EDPHYS ---
Physician Documentation [facility] Name: Wolf Roberto Age: 77 yrs Sex: Male : 1940 Arrival Date: 04/04/2018 Time: 23:44 Bed 6 Private MD: ED Physician Daniel Doll HPI: 04/05 00:04 This 77 yrs old Male presents to ER via EMS with complaints of Fall Injury. ps1 00:04 Patient had a mechanical fall. Has right hip pain. Pain rated as severe. Unable to ps1 ambulate. Lives in [place]. On ASA and Plavix. No LOC. . Historical: - Allergies: 00:06 PENICILLINS; ak1 - Home Meds: 00:06 aspirin 325 mg Oral tab 1 tab once daily [Active]; enalapril maleate 10 mg Oral tab 1 ak1 tab once daily [Active]; Fish Oil 1,000 mg Oral cap twice a day [Active]; Plavix 75 mg Oral tab 1 tab once daily [Active]; meclizine 25 mg Oral tab 1 tab TID prn [Active]; imdur ER 60 mg daily [Active]; multivitamin Oral cap 1 tab daily [Active]; Humalog Sub-Q [Active]; isosorbide mononitrate 60 mg Oral Tb24 1 tab once daily [Active]; lisinopril 10 mg Oral tab 1 tab once daily [Active]; metoprolol tartrate 50 mg Oral tab once daily [Active]; gemfibrozil 600 mg Oral tab 1 tab 2 times per day [Active]; simvastatin 80 mg Oral tab [Active]; Tradjenta 5 mg oral tab 1 tab once daily [Active]; gabapentin 300 mg oral cap [Active]; trental [Active]; tramadol 50 mg Oral tab [Active]; tylenol [Active]; Lantus Sub-Q [Active]; - PMHx: 00:06 Diabetes - NIDDM; PVD; TIA; ak1 - PSHx: 00:06 double bypass sx; ak1 - Immunization history: Last tetanus immunization: unknown. - Social history:: Smoking status: Patient/guardian denies using tobacco. - Ebola Screening: : No symptoms or risks identified at this time. ROS: 00:04 Constitutional: Negative for fever, chills, and weight loss, Eyes: Negative for injury, ps1 pain, redness, and discharge, Cardiovascular: Negative for chest pain, palpitations, and edema, Respiratory: Negative for shortness of breath, cough, wheezing, and pleuritic chest pain, Abdomen/GI: Negative for abdominal pain, nausea, vomiting, diarrhea, and constipation, Back: Negative for injury and pain, Skin: Negative for injury, rash, and discoloration, Neuro: Negative for headache, weakness, numbness, tingling, and seizure. 00:04 MS/extremity: Positive for contusion, pain, of the right leg. Exam: 00:04 Constitutional: This is a well developed, well nourished patient who is awake, alert, ps1 and in no acute distress. Head/Face: Normocephalic, atraumatic. Chest/axilla: Normal chest wall appearance and motion. Nontender with no deformity. No lesions are appreciated. Cardiovascular: Regular rate and rhythm. No gallops, murmurs, or rubs. Normal PMI, no JVD. No pulse deficits. Respiratory: Lungs have equal breath sounds bilaterally, clear to auscultation and percussion. No rales, rhonchi or wheezes noted. No increased work of breathing, no retractions or nasal flaring. Abdomen/GI: Soft, non-tender, with normal bowel sounds. No distension or tympany. No guarding or rebound. No evidence of tenderness throughout. 00:04 Musculoskeletal/extremity: Extremities: grossly normal except: noted in the right leg: decreased ROM, pain, There is no evidence of leg length descrepancy. Vital Signs: 04/04 23:53 BP 162 / 87; Pulse 93; Resp 20; Temp 98.2(O); Pulse Ox 100% on R/A; Weight 100.24 kg ak1 (R); Height 6 ft. 1 in. (185.42 cm) (R); Pain 06/13; 04/05 00:29 BP 156 / 78; Pulse 89; Resp 20; Pulse Ox 100% on R/A; Pain 10/10; ak1 01:52 BP 151 / 67; Pulse 96; Resp 20; Pulse Ox 100% on R/A; Pain 8/10; ak1 02:52 BP 149 / 81; Pulse 105; Resp 20; Temp 98.2(O); Pulse Ox 98% on R/A; Pain 8/10; ak1 04/04 23:53 Body Mass Index 29.16 (100.24 kg, 185.42 cm) ak1 [place] Coma Score: 04/04 23:53 Eye Response: spontaneous(4). Verbal Response: oriented(5). Motor Response: obeys ak1 commands(6). Total: 15. Trauma Score (Adult): 23:53 Eye Response: spontaneous(1); Verbal Response: oriented(1); Motor Response: obeys ak1 commands(2); Systolic BP: > 89 mm Hg(4); Respiratory Rate: 10 to 29 per min(4); Barbara Score: 15; Trauma Score: 12 MDM: 04/05 00:08 Patient medically screened. ps1 02:39 Data reviewed: vital signs, nurses notes, lab test result(s), radiologic studies, CT ps1 scan, and as a result, I will admit patient. Physician consultation: Mike Conrad MD and will see patient in inpatient room. ED course: patient has right displaced comminuted intertrochanteric fracture. Pain controlled. Dr. Conrad to see in am. Admitted to hospitalist. Stable. Incidental finding of ascending aortic aneurysm. . 04/05 00:08 Order name: Basic Metabolic Panel; Complete Time: 00:48 ps1 04/05 00:08 Order name: CBC with Diff; Complete Time: 00:36 ps1 04/05 00:08 Order name: CT Traumagram (Head C Spine CAP wo con) ps1 04/05 00:08 Order name: Creatinine for Radiology; Complete Time: 01:06 ps1 04/05 00:08 Order name: Type And Screen; Complete Time: 02:21 ps1 04/05 02:34 Order name: ABO/RH no charge; Complete Time: 02:37 EDMS 04/05 00:08 Order name: Labs collected and sent; Complete Time: 00:23 ps1 04/05 00:08 Order name: Femur Right XRAY ps1 Administered Medications: 00:22 Drug: morphine 4 mg Route: IVP; Site: right antecubital; ak1 00:52 Follow up: Response: No adverse reaction ak1 00:22 Drug: Zofran 4 mg Route: IVP; Site: right antecubital; ak1 00:52 Follow up: Response: No adverse reaction ak1 01:28 Drug: Zofran 4 mg Route: IVP; Site: right antecubital; ak1 01:48 Follow up: Response: No adverse reaction ak1 01:28 Drug: morphine 4 mg Route: IVP; Site: right antecubital; ak1 01:48 Follow up: Response: No adverse reaction; Pain is decreased ak1 Disposition: 04/05/18 02:38 Hospitalization ordered by Licha Scott for Inpatient Admission. Preliminary diagnosis are Intertrochanteric Fracture, Aortic Aneurysm, Fall. - Bed requested for Telemetry/MedSurg (Inpatient). - Status is Inpatient Admission. ak1 - Condition is Stable. - Problem is new. - Symptoms are unchanged. UTI on Admission? No Signatures: Dispatcher [employer] EDMS Mary Mccrary ms, Amber RN RN ak1 Daniel Doll MD MD ps1 Corrections: (The following items were deleted from the chart) 03:36 02:38 Hospitalization Ordered by Licha Scott MD for Inpatient Admission. Preliminary ms diagnosis is Intertrochanteric Fracture; Aortic Aneurysm; Fall. Bed requested for Telemetry/MedSurg (Inpatient). Status is Inpatient Admission. Condition is Stable. Problem is new. Symptoms are unchanged. UTI on Admission? No. ps1 04:09 03:36 04/05/2018 02:38 Hospitalization Ordered by Licha Scott MD for Inpatient ak1 Admission. Preliminary diagnosis is Intertrochanteric Fracture; Aortic Aneurysm; Fall. Bed requested for Telemetry/MedSurg (Inpatient). Status is Inpatient Admission. Condition is Stable. Problem is new. Symptoms are unchanged. UTI on Admission? No. ms
--- NOTE | 2018-04-05 02:39 | ER ---
Nurse's Notes [facility] Name: Wolf Roberto Age: 77 yrs Sex: Male : 1940 Arrival Date: 04/04/2018 Time: 23:44 Bed 6 Private MD: Diagnosis: Intertrochanteric Fracture;Aortic Aneurysm;Fall Presentation: 04/04 23:54 Presenting complaint: EMS states: pt tripped and fell over wheelchair foot rest at [address] 45 mins [employer]ACHINE [employer]. pt was found sitting on edge of bed by EMS. pt c/o pain to right upper leg, right hip s/p fall. pt and healthcare workers denies LOC, denies head injury. pt A\T\OX4. pt uses a walker and a cane when ambulating at the facility. Care prior to arrival: None. Mechanism of Injury: Fall from standing position. Trauma event details: Injury occurred in the [facility], Injury occurred: at home. Injury occurred: April 04, 2018 Injury occurred at: 23:15. 23:54 Acuity: TIM 3 [facility] 23:54 Method Of Arrival: EMS: [facility] 04/05 00:29 Transition of care: patient was received from another setting of care (long-term care [address]), [facility]. Onset of symptoms was April 04, 2018. Risk Assessment: Do you want to hurt yourself or someone else? Patient reports no desire to harm self or others. Initial Sepsis Screen: Does the patient meet any 2 criteria? No. Patient's initial sepsis screen is negative. Does the patient have a suspected source of infection? No. Patient's initial sepsis screen is negative. Trauma Activation: Not Applicable Physician: ED Physician; Name: ; Notified At: ; Arrived At: Physician: General Surgeon; Name: ; Notified At: ; Arrived At: Physician: Radiology; Name: ; Notified At: ; Arrived At: Physician: Respiratory; Name: ; Notified At: ; Arrived At: Physician: Lab; Name: ; Notified At: ; Arrived At: Historical: - Allergies: 00:06 PENICILLINS; ak1 - Home Meds: 00:06 aspirin 325 mg Oral tab 1 tab once daily [Active]; enalapril maleate 10 mg Oral tab 1 ak1 tab once daily [Active]; Fish Oil 1,000 mg Oral cap twice a day [Active]; Plavix 75 mg Oral tab 1 tab once daily [Active]; meclizine 25 mg Oral tab 1 tab TID prn [Active]; imdur ER 60 mg daily [Active]; multivitamin Oral cap 1 tab daily [Active]; Humalog Sub-Q [Active]; isosorbide mononitrate 60 mg Oral Tb24 1 tab once daily [Active]; lisinopril 10 mg Oral tab 1 tab once daily [Active]; metoprolol tartrate 50 mg Oral tab once daily [Active]; gemfibrozil 600 mg Oral tab 1 tab 2 times per day [Active]; simvastatin 80 mg Oral tab [Active]; Tradjenta 5 mg oral tab 1 tab once daily [Active]; gabapentin 300 mg oral cap [Active]; trental [Active]; tramadol 50 mg Oral tab [Active]; tylenol [Active]; Lantus Sub-Q [Active]; - PMHx: 00:06 Diabetes - NIDDM; PVD; TIA; ak1 - PSHx: 00:06 double bypass sx; ak1 - Immunization history: Last tetanus immunization: unknown. - Social history:: Smoking status: Patient/guardian denies using tobacco. - Ebola Screening: : No symptoms or risks identified at this time. Screenin/01 23:53 Abuse screen: Denies threats or abuse. Denies injuries from another. Tuberculosis ak1 screening: No symptoms or risk factors identified. 04/05 00:31 Nutritional screening: No deficits noted. Fall Risk Fall in past 12 months (25 points). ak1 Ambulatory Aid- Crutches/Cane/Walker (15 pts). Gait- Normal/Bed Rest/Wheelchair (0 pts). Primary Survey: 04/04 23:54 A: Airway: patent. Breathing/Chest: Respiratory pattern: regular. Circulation: Skin ak1 temperature: warm, dry. Disability Alert. 04/05 00:28 Reassessment Airway Airway Patent Breathing/Chest Respiratory pattern Regular ak1 Circulation Temperature Warm Dry. Assessment: 04/04 23:54 General: Appears uncomfortable, well groomed, Behavior is cooperative. Pain: Complains ak1 of pain in right leg. Neuro: Level of Consciousness is awake, alert, obeys commands, Oriented to person, place, time, situation, Retail Support Specialist are equal bilaterally Moves all extremities. Speech is normal, Facial symmetry appears normal. EENT: No signs and/or symptoms were reported regarding the EENT system. Cardiovascular: No deficits noted. Respiratory: No deficits noted. GI: No signs and/or symptoms were reported involving the gastrointestinal system. : No signs and/or symptoms were reported regarding the genitourinary system. Derm: No signs and/or symptoms reported regarding the dermatologic system. Musculoskeletal: pt c/o pain to upper right leg and right hip with movement. denies pain with palpation. Reports pain in right leg since 5 s/p fall . 04/05 00:56 Reassessment: pt taken to CT. pt pain decreased slightly after medications. ak1 01:10 Reassessment: Patient appears in no apparent distress at this time. Patient and/or ak1 family updated on plan of care and expected duration. Pain level reassessed. pt with family at bedside. pt informed of right hip fx. . 02:51 Reassessment: pt and family updated as to plan of care for Dr. Restrepo to place admission ak1 orders and Dr. Conrad to see pt in the morning. pt remains uncomfortable. will continue to monitor. . 03:09 Reassessment: [facility] contacted and updated about pt condition and ak1 admission status. Vital Signs: 04/04 23:53 BP 162 / 87; Pulse 93; Resp 20; Temp 98.2(O); Pulse Ox 100% on R/A; Weight 100.24 kg ak1 (R); Height 6 ft. 1 in. (185.42 cm) (R); Pain 10/10; 04/05 00:29 BP 156 / 78; Pulse 89; Resp 20; Pulse Ox 100% on R/A; Pain 10/10; ak1 01:52 BP 151 / 67; Pulse 96; Resp 20; Pulse Ox 100% on R/A; Pain 8/10; ak1 02:52 BP 149 / 81; Pulse 105; Resp 20; Temp 98.2(O); Pulse Ox 98% on R/A; Pain 8/10; ak1 04/04 23:53 Body Mass Index 29.16 (100.24 kg, 185.42 cm) ak1 Barbara Coma Score: 04/04 23:53 Eye Response: spontaneous(4). Verbal Response: oriented(5). Motor Response: obeys ak1 commands(6). Total: 15. Trauma Score (Adult): 23:53 Eye Response: spontaneous(1); Verbal Response: oriented(1); Motor Response: obeys ak1 commands(2); Systolic BP: > 89 mm Hg(4); Respiratory Rate: 10 to 29 per min(4); Barbara Score: 15; Trauma Score: 12 ED Course: 23:44 Patient arrived in ED. ds1 23:53 Rula Newton, RN is Primary Nurse. ak1 23:53 Patient has correct armband on for positive identification. Bed in low position. Call ak1 light in reach. Side rails up X2. 23:53 Patient maintains SpO2 saturation greater than 95% on room air. ak1 23:56 Triage completed. ak1 0802 00:00 Daniel Doll MD is Attending Physician. ps1 00:06 Arm band placed on Patient placed in an exam room, on a stretcher, on pulse oximetry, ak1 Patient notified of wait time. 00:28 Inserted saline lock: 20 gauge in right antecubital area, using aseptic technique. ak1 Blood collected. 00:31 Thermoregulation: warm blanket given to patient. ak1 00:39 X-ray completed. Portable x-ray completed in exam room. Patient tolerated procedure kw poorly. 00:39 Femur Right XRAY In Process Unspecified. EDMS 00:56 Placed in gown. Pulse ox on. NIBP on. Door closed. Lights dimmed. Warm blanket given. ak1 01:09 CT Traumagram (Head C Spine CAP wo con) In Process Unspecified. EDMS 01:18 CT completed. Pt tolerated procedure poorly. Patient moved to CT via stretcher. Patient eh moved back from CT. 01:47 No provider procedures requiring assistance completed. ak1 02:38 Licha Scott MD is Hospitalizing Provider. ps1 02:38 Patient admitted, IV remains in place. ak1 Administered Medications: 00:22 Drug: morphine 4 mg Route: IVP; Site: right antecubital; ak1 00:52 Follow up: Response: No adverse reaction ak1 00:22 Drug: Zofran 4 mg Route: IVP; Site: right antecubital; ak1 00:52 Follow up: Response: No adverse reaction ak1 01:28 Drug: Zofran 4 mg Route: IVP; Site: right antecubital; ak1 01:48 Follow up: Response: No adverse reaction ak1 01:28 Drug: morphine 4 mg Route: IVP; Site: right antecubital; ak1 01:48 Follow up: Response: No adverse reaction; Pain is decreased ak1 Intake: 04/04 23:53 PO: 0ml; Total: 0ml. ak1 Outcome: 04/05 00:53 Patient's length of stay in the Emergency Department was greater than 2 hours. pt ak1 admittedPatient's length of stay extended due to 02:38 Condition: stable ak1 02:38 Instructed on the need for admit. 02:38 Decision to Hospitalize by Provider. ps1 04:08 Admitted to Med/surg accompanied by tech, family with patient, via stretcher, room 428, ak1 with chart, Report called to Tasha nurse for 428 04:09 Patient left the ED. ak1 Signatures: Dispatcher [employer] EDMS Thomas Rosa Demi ds1 Zoë Lester Amber, RN RN ak1 Danile Doll MD MD ps1
[2018-04-05] MEDS ORDERED: ONDANSETRON 4 MG/2 ML VIAL IV PRN (03:25)
[2018-04-05] MEDS ORDERED: ACETAMINOPHEN 500 MG TAB PO PRN (03:25)
[2018-04-05] MEDS ORDERED: NA CHLORIDE 0.9% 1,000 ML IV SCH (04:00)
[2018-04-05 04:42] VITALS: BMI 28.7
[2018-04-05 06:38] LABS: BUN Blood Urea Nitrogen 15 mg/dL (7-18); Bicarbonate 24 mmol/L (21-32); Glucose Level 184 mg/dL (74-106); Sodium Level 141 mmol/L (136-145)
[2018-04-05 06:43] LABS: Absolute Lymphocytes (CBC) 0.8 K/uL (0.7-4.9); Basophils % 0.5 % (0-1.3); Eosinophils % 0.4 % (0-4.4); Hematocrit 34.3 % (39.6-49.0); Lymphocytes % 4.7 % (15.3-44.8); MCH 29.5 pg (27.0-35.0); MCV 84.6 fL (80-100); MPV 9.7 fL (7.6-11.3); Monocytes % 6.1 % (3.3-12.3); RBC Red Blood Cell Count 4.06 M/uL (4.33-5.43)
[2018-04-05 07:11] LABS: Protime INR 1.25
--- NOTE | 2018-04-05 07:13 | CON ---
Identification: A 77-year-old man. Chief Complaint: Pain in the right hip. History Of Present Illness: Mr. Roberto is a gentleman with severe vascular disease. He lives in a prison and had a fall. He fell on his right hip and either seems to be a fracture that involve s the bones very close to the trochanter, it may be an intertrochanteric fracture. There is no dicta bassem report. The films are easy to see. The patient is not having chest pain. His fracture is just about 8 or 10 hours ago. He has a history of coronary bypass surgery in 2005. In January of this year, he required [address] Sevilla did those. His stent was in the circumflex artery. Two stents were used, but it was 1 vessel that was treated with the 2 stents. His other ar teries looked reasonably well. Some of his grafts were gone including the graft that used to go to a bout the circumflex. Just 10 days ago, he had left carotid endarterectomy. Postop, he was confused and I think that there may have been a postop stroke or TIA, not sure what the thinking of his consul tants at [facility] where he had the surgery. Some kind of neurological event occurred. Outpatient Medications: Not listed yet, though we know that he has been on dual anti-platelet therap y. Emergency room notes indicate aspirin 325, enalapril, fish oil, Plavix, meclizine, Imdur, multivi tamins, Humalog insulin, isosorbide mononitrate, metoprolol, lisinopril, gemfibrozil, simvastatin 80, Tradjenta, gabapentin, Trental, Lantus subcu. He is also known to have severe disease in the right SFA and has a staged procedure, a femoral-popliteal bypass was planned on the right and his right marie l has a poor healing wound. Physical Examination: Vital Signs: 6 feet tall, 211 pounds. HEENT: Normal. Lungs: Clear. Heart: S4, gallop. No bruit. Skin: The wound on the left side of his neck is healing nicely. Impression: The patient is not having unstable angina right now. He is in situation where stopping aspirin and Plavix is considered life-threatening. We do not want to stop aspirin and Plavix with a coronary stent just 2-month-old. He has a fracture that will require open reduction and internal fix ation. He is not a low risk patient by any means this, but the risk benefit ratio includes the fact that this is not an elective surgery. If it needs to be done, I think we could probably make a case that his other doctors would agree with that his surgery might be done better at [facility] where he recently had his carotid surgery and consultants know him. Thank you very much for your kind referral of Mr. Roberto. We will follow him with you. QUIANA Voice ID: [id number] Report ID: [id number]
--- NOTE | 2018-04-05 07:13 | RAD REPORT ---
EXAM DESCRIPTION: RAD - Femur Right - 04/05/2018 12:43 am CLINICAL HISTORY: Fall, leg pain COMPARISON: None. FINDINGS: An oblique fracture is present through the intertrochanteric segment of the femur. Lesser trochanter is a free fracture fragment. Pathologic etiology is not suspected. No AVN or focal femoral head abnormality. There is no dislocation or focal abnormality of the femoral head. More distally remainder the femur shows no acute finding. No air or foreign body in the soft tissues. IMPRESSION: Right femur intertrochanteric fracture with lesser trochanter free fracture fragment. Pathologic fracture is not suspected.
--- NOTE | 2018-04-05 07:31 | RAD REPORT ---
EXAM DESCRIPTION: CT - Head C Spine Cap Wo Con - 04/05/2018 6:15 am CLINICAL HISTORY: Fall, head, neck, chest and abdomen pain, pelvic and right hip pain A preliminary written report was provided at the time of the study, and the report was reviewed prio r to final dictation. COMPARISON: CT head December 2017, abdomen CT November 2017 TECHNIQUE: Axial [address] head images were obtained. Axial [address] cervical spine images were obtain ed with sagittal and coronal reconstruction images reviewed. Axial 5 mm images of the chest, abdomen and pelvis were obtained. All CT scans are performed using dose optimization technique as appropriate and may include automated exposure control or mA/KV adjustment according to patient size. FINDINGS: No intracranial hemorrhage, mass or edema. No midline shift or abnormal fluid collection. Mastoid air cells and paranasal sinuses are clear. No skull fracture. No evidence for an acute corti yaw based infarction. Patient has moderate severity atrophy and chronic ischemic change matching the short-term December comparison. Ventricular size is in proportion. Cervical bodies are normal in height. No compression fracture or acute vertebral body finding. There is reversal of the usual cervical lordosis that could be due to positioning. No subluxation abnormali ty. No facet joint alignment abnormality. No pathologic bone process.C4-5, prominent C5-6 and C6-7 di sc space narrowing present. Bilateral facet joint hypertrophy causes mild bilateral foraminal encroac hment at C2-3. There is moderate left foraminal stenosis at C3-4 primarily from facet hypertrophy. Mo derately severe bilateral foraminal stenosis at C4-5 from uncovertebral joint hypertrophy and mild fa cet degenerative change. There is significant posterior endplate spurring superior aspect of C5. This causes central spinal stenosis and cord flattening. Canal is 6-7 mm. Mild to moderate severity bilat eral foraminal stenosis at C5-6. Large posterior endplate spur superior margin C6 causes significant midline and left-sided cord flattening and spinal stenosis to 6- 7 mm. Mild left foraminal stenosis a t C6-7. Midline and left-side endplate spurring from C7 causes spinal stenosis to 8 mm and probable c ord flattening.No prevertebral soft tissue thickening or paraspinal mass.Central canal detail is inhe rently limited on CT imaging. CT chest shows no pneumothorax, pulmonary contusion or pleural fluid collection. A small 6 millimeter pulmonary nodule is present in the lower right lung field (image 29/139). Pleural abutting nodularit y in the posterior gutter on the right is 7-8 mm in size (image 38/139). Minimal atelectasis changes are present. No mediastinal hematoma and the aorta and pulmonary arteries are unremarkable. No chest will mass or abnormal axillary finding. No displaced rib fracture or other significant bony finding. There are 2 right-sided pulmonary nodules 6-8 mm in size. No comparison is available to establish lo ng-term stability. Followup recommendations would be to obtain CT chest imaging in 3-6 months followe d by 18-[address] imaging - obtained if the patient is high risk for considered if the patient is low risk. Ascending aorta is 4.[address] abdomen and pelvis show no injury to solid abdominal viscera. Gallbladder and biliary tree are unr emarkable. No bowel injury or significant finding. No free air, free fluid or abnormal stranding. No hernia, mass or bulky lymphadenopathy. No urinary bladder abnormality. Thoracic and lumbar spine showed bony and disc degenerative change. No compression fracture or acute finding. Well-healed sternotomy with wire placement. Right intertrochanteric fracture is present. Le sser trochanter is a free fracture fragment. No focal femoral head abnormality. No pathologic compone nt seen. IMPRESSION: Moderate severity atrophy and chronic ischemic change similar to comparison. No acute fi nding. No fracture or acute cervical spine finding. The patient has multilevel bony central canal stenosis w ith significant cord flattening. No acute traumatic injury to the chest. Patient has 2 right-sided noncalcified pulmonary nodules with initial follow-up recommendation of CT imaging in 3-6 months. No acute traumatic soft tissue injury to the abdomen or pelvis. Right femur intertrochanteric fractur e as detailed.
--- NOTE | 2018-04-05 07:45 | P.HP ---
Certification for Inpatient Patient admitted to: Inpatient With expected LOS: >2 Midnights Patient will require the following post-hospital care: Rehabilitation Practitioner: I am a practitioner with admitting privileges, knowledge of patient current condition, hospital course, and medical plan of care. Services: Services provided to patient in accordance with Admission requirements found in Title 42 Section 412.3 of the Code of Federal Regulations Patient History Date of Service: 04/05/18 Reason for admission: Right femur intertrochanteric fracture with lesser trochanter free fracture History of Present Illness: Patient is a 77-year-old gentleman who has a very complicated medical history. Patient has history of coronary artery bypass grafting x4 vessels in earlier this year in January of 2018 he required 2 stents. 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 He had a carotid endarterectomy done 10 days ago. Unfortunately, he suffered a stroke today after the carotid endarterectomy. According to his daughter this was confirmed by imaging study. Patient was discharge back to the nursing facility were [facility]. Patient was doing well until he got out of bed and fell. He was brought to the emergency room were he was found have a right femur intertrochanteric fracture with lesser trochanter free fracture fragment. Patient was accepted to our facility for possible orthopedic intervention. However, after talking with the daughter-she arrived after patient's admission-we were able to ascertain patient 's complicated cardiac history. Will get Cardiology consultation and try to determine best course of action for patient given all his medical issues. Patient was scheduled to have any intervention of his superficial femoral artery according to the daughter. Patient also has a nonhealing wound on the right heel. Allergies Penicillins Allergy (Verified 02/20/18 12:52) Rash Tetanus Vaccines and Toxoid [Tetanus Vaccines & Toxoid] Adverse Reaction ( Verified 02/20/18 12:52) blisters Home Medications: Clopidogrel Bisulfate [Plavix*] 75 mg PO DAILY 05/20/15 Insulin 70/30 NPH/Reg Human [Novolin 70/30*] 32 unit SQ BID 05/20/15 Isosorbide Mononitrate [Isosorbide Mononitrate ER] 60 mg PO DAILY 05/20/15 Pentoxifylline 400 mg PO BID 05/20/15 Aspirin [Aspirin EC 81 MG] 81 mg PO DAILY 12/18/17 Enalapril [Vasotec*] 10 mg PO DAILY 12/18/17 Metoprolol Succinate [Toprol Xl*] 50 mg PO DAILY 12/18/17 Gemfibrozil 600 mg PO BID #60 tablet 12/21/17 Simvastatin 80 mg PO BEDTIME #30 tablet 12/21/17 Acetaminophen [Tylenol] 500 mg PO Q6HP PRN 01/16/18 Insulin Glargine,Hum.rec.anlog [Lantus] 25 units SQ DAILY 01/16/18 Lisinopril [Prinivil*] 10 mg pe PO DAILY 01/16/18 - Past Medical/Surgical History Diabetic: Yes -: IDDM -: Wound on the right heel -: TIA -: Dyslipidemia -: HTN -: Peripheral arterial disease -: Coronary artery disease -: Carotid artery stenosis -: CVA -: Bypass x 4 CABG -: gallbladder -: Carotid endarterectomy-left -: Cardiac catheterization with stent placement - Family History Father Medical History: Cancer Mother Notes: old age - Social History Smoking Status: Former smoker Alcohol use: No CD- Drugs: No Caffeine use: Yes Review of Systems is unable to be obtained Physical Examination - Vital Signs Temperature: 98 F Blood Pressure: 157/71 Pulse: 109 Respirations: 16 Pulse Ox (%): 98 - Physical Exam General: Alert, In no apparent distress, Oriented x2 HEENT: Atraumatic, PERRLA, Mucous membr. moist/pink, EOMI, Sclerae nonicteric Neck: Supple, No LAD, Other (recent left-sided carotid endarterectomy with healing wound), Without JVD or thyroid abnormality, Bruit Respiratory: Clear to auscultation bilaterally, Normal air movement Cardiovascular: Regular rate/rhythm, Normal S1 S2, Systolic murmur Gastrointestinal: Normal bowel sounds, Soft and benign, Non-distended, No tenderness Musculoskeletal: No clubbing, No swelling, Tenderness Integumentary: No rashes, Skin breakdown, Skin lesion, Diabetic ulcer, Arterial ulcer Neurological: Normal speech, Normal tone, Sensation intact, Cranial nerves 3-12 intact, Normal affect, Abnormal gait, Abnormal strength Lymphatics: No axilla or inguinal lymphadenopathy - Studies Laboratory Data (last 24 hrs) 04/05/18 00:24: Creatinine 0.90 04/05/18 00:24: WBC 15.1 H, Hgb 12.7 L, Hct 36.6 L, Plt Count 364 04/05/18 00:24: Sodium 141, Potassium 4.2, BUN 16, Creatinine 0.90, Glucose 182 H Assessment & Plan - Problems (Diagnosis) (1) Fracture, intertrochanteric, right femur Current Visit: Yes Status: Acute (2) Non-healing wound of right heel Current Visit: Yes Status: Acute (3) PAD (peripheral artery disease) Current Visit: Yes Status: Acute (4) S/P carotid endarterectomy Current Visit: Yes Status: Acute (5) CAD (coronary artery disease) Current Visit: Yes Status: Acute (6) S/P coronary artery stent placement Current Visit: Yes Status: Acute (7) DM2 (diabetes mellitus, type 2) Current Visit: Yes Status: Acute (8) HTN (hypertension) Current Visit: Yes Status: Acute (9) CVA (cerebral vascular accident) Current Visit: Yes Status: Acute - Plan PLAN: 1. Ortho consult 2. Cardio consult for cardiac clearance 3. IV hydration 4. Continue with anti-platelet therapy 5. Beta-ariadna therapy 6. PT eval after surgery 7. GI and DVT prophylaxis Discharge Plan: Home Plan to discharge in: Greater than 2 days - Advance Directives Does patient have a Living Will: No Does patient have a Durable POA for Healthcare: No - Code Status/Comfort Care Code Status Assessed: Yes Code Status: Full Code Critical Care: No Time Spent Managing PTS Care (In Minutes): 50
[2018-04-05 08:04] LABS: Blood Morphology Comment NOT SEEN (NOT SEEN); Platelet Estimate ADEQ
[2018-04-05] MEDS: ASPIRIN EC 81 MG TAB PO SCH ×2 (08:44→09:20)
[2018-04-05] MEDS: CLOPIDOGREL 75 MG TABLET PO SCH ×2 (08:44→09:20)
[2018-04-05 09:55] VITALS: O2SAT 95
[2018-04-05 12:53] VITALS: BP 164/79; TEMP 98.7
--- NOTE | 2018-04-05 16:19 | DS ---
Date of Discharge: 04/05/2018 Consultants: Dr. Franz with Cardiology, Dr. Conrad with Orthopedics. Procedures: None. Admitting Diagnoses: 1.Right hip fracture, initial encounter. 2.Nonhealing wound of the right heel. 3.Peripheral arterial disease. 4.Status post carotid endarterectomy. 5.Coronary artery disease. 6.Status post coronary artery stent placement. 7.Diabetes mellitus type 2, insulin requiring with hyperglycemia. 8.Essential hypertension. 9.History of cerebrovascular accident. Discharge Diagnoses: 1.Right hip fracture, initial encounter. 2.Nonhealing wound of the right heel. 3.Peripheral arterial disease. 4.Status post recent carotid endarterectomy. 5.Coronary artery disease, [place] artery and [place] heart, status post stent. 6.Diabetes mellitus type 2, insulin requiring with hyperglycemia. 7.Essential hypertension. 8.History of cerebrovascular accident. Hospital Course: The patient is a 77-year-old male, who had been in [facility] fo r recent carotid endarterectomy 10 days ago. The patient also has history of coronary artery bypass graft in January 2018 and also 2 stents in his heart. The patient is on aspirin and Plavix. The patient also has peripheral arterial disease and did suffer a stroke after the carotid endarterectomy. The patient had been in the nursing facility at [facility] and had a fall. The patient was found to have a right femur intertrochanteric fracture with lesser trochanteric free fragment also pr esent. Due to the patient's complicated cardiac and peripheral vascular disease, Cardiology consulta tion was obtained. Dr. Franz with Cardiology saw the patient and recommended transfer back to [facility] due to his recent surgery the fact that he was on aspirin and Plavix, which should now be stopped given the recent carotid endarterectomy and stent. The patient was also seen b gurjit Conrad and he also agreed with Cardiology recommendations to transfer the patient for higher le calvin of care to have CT surgery as well as his other consultants available should the patient have com plications as he is very high risk for surgery. The patient was then referred to [facility] for higher level of care and was transferred after bed was available. Total time spent transferred the patient was 38 minutes. CORETTA Voice ID: [id number] Report ID: [id number]
[2018-04-05] MEDS ORDERED: NPH (HUMAN) 100 UNITS/ML INSULIN SQ SCH (17:00)
[2018-04-05] MEDS ORDERED: INSULIN LISPRO 100 UNIT/1 ML SQ SCH (17:00)
[2018-04-05] MEDS ORDERED: HOME MED 1 EA UNK (Gabapentin [Gralise] 600 MG) PO SCH (21:00)
[2018-04-05] MEDS ORDERED: ATORVASTATIN 40 MG TAB PO SCH (21:00)
[2018-04-05] MEDS ORDERED: GEMFIBROZIL 600 MG TAB PO SCH (21:00)
[2018-04-06] MEDS ORDERED: METOPROLOL TAR 50 MG TAB PO SCH (09:00)
[2018-04-06] MEDS ORDERED: LISINOPRIL 10 MG TAB PO SCH (09:00)
[2018-04-06] MEDS ORDERED: ISOSORBIDE MONO SR 60 MG TAB PO SCH (09:00)
== END 2018-04-05 12:50 | disposition short-term general hospital (02) | DRG 536 ==
LOC: ER 23:43 → ERHOLD 04-05 02:47 → 4TH 04-05 03:42
PROVIDERS: ADMIT Hospitalist; ATTEND Family Medicine
DX: S72.141A Displaced intertrochanteric fracture of right femur, initial encounter for closed fracture (principal); S91.301A Unspecified open wound, right foot, initial encounter; E78.5 Hyperlipidemia, unspecified; I10 Essential (primary) hypertension; I25.10 Atherosclerotic heart disease of native coronary artery without angina pectoris; E11.51 Type 2 diabetes mellitus with diabetic peripheral angiopathy without gangrene; Z86.73 Personal history of transient ischemic attack (TIA), and cerebral infarction without residual deficits; W01.0XXA Fall on same level from slipping, tripping and stumbling without subsequent striking against object, initial encounter; Y92.129 Unspecified place in nursing home as the place of occurrence of the external cause; Z79.02 Long term (current) use of antithrombotics/antiplatelets; Z79.82 Long term (current) use of aspirin; Z88.7 Allergy status to serum and vaccine; Z88.0 Allergy status to penicillin; Z95.1 Presence of aortocoronary bypass graft; Z95.5 Presence of coronary angioplasty implant and graft; Z79.4 Long term (current) use of insulin
CPT/HCPCS: 36415; 70450; 71250; 72125; 80048; 85025; 85610; 85730; 86850; 86900; 86901; 96374; 96375; 99285; J2405; J7030